=== PATIENT | female | born 1955 | race Caucasian/White ===

== ENCOUNTER 2021-08-14 12:27 | Inpatient (IN) | payer OTHER ==
[~2021-08-14] VITALS: Ht 160 cm; Wt 93.6 kg
[2021-08-14] MEDS ORDERED: AZITHROMYCIN 500MG/ 250ML 250 ML IV ONE (12:45)
[2021-08-14] MEDS ORDERED: methylPREDNISolone SOD SUCC 125 MG/2 ML VL IV ONE (12:45)
[2021-08-14] MEDS ORDERED: ASCORBIC ACID 500 MG TAB PO ONE (12:45)
[2021-08-14] MEDS ORDERED: CHOLECALCIFEROL (VITD3) 2,000 UNIT CAP/TAB PO ONE (12:45)
[2021-08-14] MEDS ORDERED: ZINC SULFATE 220mg CAP or TAB PO ONE (12:45)
[2021-08-14 14:07] LABS: Basophils # (auto) 0 10 ^3/uL (0-0.2); Basophils % (auto) 0.7 % (0.0-2.0); Eosinophils # (auto) 0 10 ^3/uL (0-0.8); Hemoglobin 14.5 g/dL (12.2-16.2); Lymphocytes # (auto) 0.4 10 ^3/uL (0.4-5.4); Lymphocytes % (auto) 10.1 % (10.0-50.0); Mean Corpuscular Hemoglobin 28.7 pg (28.0-32.0); Mean Corpuscular Hgb Conc. 33.7 g/dL (32.0-36.0); Mean Corpuscular Volume 85.3 fL (80.0-100.0); Monocytes # (auto) 0.3 10 ^3/uL (0-1.3); Monocytes % (auto) 9.5 % (0.0-12.0); Neutrophils # (auto) 2.8 10 ^3/uL (1.6-8.6); Neutrophils % (auto) 79.7 % (37.0-80.0); Nucleated Red Blood Cells % 0.1 %; Red Blood Cells 5.04 10^6/uL (4.0-5.20); Red Cell Distribution Width 13.7 % (11.8-14.3); White Blood Cell 3.5 10^3/uL (4.4-10.8)
[2021-08-14 14:27] LABS: Albumin 2.8 g/dL (3.4-5.0); Calcium 8.1 mg/dL (8.5-10.1); Potassium 3.9 mmol/L (3.5-5.1)
[2021-08-14 14:36] LABS: BUN/Creatinine Ratio 30.2; Bilirubin, Total 0.3 mg/dL (0.2-1.0); CRP High Sensitivity 8.54 mg/dL (< 0.3); Total Protein 7.3 g/dL (6.4-8.2)
[2021-08-14] MEDS ORDERED: ACETAMINOPHEN 325 MG TAB PO ONE (15:15)
[2021-08-14] MEDS ORDERED: MORPHINE SULFATE 4 MG/ML SYR/VIAL IV ONE (17:45)
[2021-08-14] MEDS ORDERED: ONDANSETRON HCL 4 MG/2 ML VIAL IV ONE (17:45)
[2021-08-14] MEDS ORDERED: DOCUSATE SOD 100 MG CAP PO PRN (22:45)
[2021-08-14] MEDS ORDERED: ONDANSETRON HCL 4 MG/2 ML VIAL IV PRN (22:45)
[2021-08-14] MEDS ORDERED: IOHEXOL 350 MG/ML 100ML IJ ONE (23:08)
[2021-08-14] MEDS: SODIUM CHLORIDE 0.9% 1,000 ML IV SCH (23:12)
[2021-08-14] MEDS ORDERED: NITROGLYCERIN 0.4 MG SL TAB SL PRN (23:45)
[2021-08-14] MEDS ORDERED: MORPHINE SULFATE INJECTION 2 MG/ML SYRG IV PRN (23:45)
[2021-08-15] VITALS (7 sets, daily range): BP systolic 105–124; BP diastolic 60–79
[2021-08-15] MEDS: HYDROcodone-ACET 5/325MG TAB PO PRN (02:43)
[2021-08-15] MEDS: SODIUM CHLORIDE 0.9% 1,000 ML IV SCH ×2 (07:05→15:51)
[2021-08-15 09:42] LABS: Basophils # (auto) 0 10 ^3/uL (0-0.2); Basophils % (auto) 0.1 % (0.0-2.0); Eosinophils # (auto) 0 10 ^3/uL (0-0.8); Hematocrit 43.1 % (36.0-46.0); Hemoglobin 14.3 g/dL (12.2-16.2); Lymphocytes # (auto) 0.4 10 ^3/uL (0.4-5.4); Lymphocytes % (auto) 8.7 % (10.0-50.0); Mean Corpuscular Hemoglobin 29.1 pg (28.0-32.0); Mean Corpuscular Hgb Conc. 33.3 g/dL (32.0-36.0); Mean Corpuscular Volume 87.4 fL (80.0-100.0); Monocytes # (auto) 0.3 10 ^3/uL (0-1.3); Monocytes % (auto) 6.3 % (0.0-12.0); Neutrophils % (auto) 84.9 % (37.0-80.0); Red Blood Cells 4.93 10^6/uL (4.0-5.20); Red Cell Distribution Width 13.6 % (11.8-14.3); White Blood Cell 4.7 10^3/uL (4.4-10.8)
[2021-08-15] MEDS: ASPirin 81 mg TAB PO SCH (09:47)
[2021-08-15] MEDS: DOXYCYCLINE 100MG/250ML 250 ML IV SCH ×2 (09:47→21:48)
[2021-08-15] MEDS: DexAMETHasone SOD PHOS 10MG/1ML VIAL INJ IV SCH (09:47)
[2021-08-15] MEDS: CHOLECALCIFEROL (VITD3) 2,000 UNIT CAP/TAB PO SCH (09:48)
[2021-08-15] MEDS: ENOXAPARIN SOD 40 MG/0.4 ML SYRINGE SC SCH ×2 (09:48→21:49)
[2021-08-15] MEDS: ASCORBIC ACID 1,000 MG TAB PO SCH (09:48)
[2021-08-15] MEDS: ZINC SULFATE 220mg CAP or TAB PO SCH (09:49)
[2021-08-15] MEDS: MULTIPLE VITAMIN TAB PO SCH (09:49)
[2021-08-15 09:59] LABS: Albumin 2.6 g/dL (3.4-5.0); Calcium 8.2 mg/dL (8.5-10.1); Potassium 3.9 mmol/L (3.5-5.1)
[2021-08-15] MEDS ORDERED: FAMOTIDINE (10MG/ML) 2ML VL IV SCH (10:00)
[2021-08-15 10:06] LABS: BUN/Creatinine Ratio 30.1; Bilirubin, Total 0.3 mg/dL (0.2-1.0)
[2021-08-15] MEDS ORDERED: REMDESIVIR PER PHARMACY 0 ML IV SCH (13:00)
[2021-08-15] MEDS ORDERED: REMDESIVIR 200 MG in NS 210ml LOADING DOSE ADULT IV ONE (15:30)
[2021-08-15] MEDS: BUDESONIDE (INHALATION) 180 MCG IH IN SCH (18:52)
[2021-08-16] MEDS: SODIUM CHLORIDE 0.9% 1,000 ML IV SCH ×2 (02:05→04:55)
[2021-08-16 05:31] VITALS: BP 128/75
[2021-08-16 05:31] LABS: Basophils # (auto) 0 10 ^3/uL (0-0.2); Basophils % (auto) 0.1 % (0.0-2.0); Eosinophils # (auto) 0 10 ^3/uL (0-0.8); Hemoglobin 13.4 g/dL (12.2-16.2); Lymphocytes # (auto) 0.6 10 ^3/uL (0.4-5.4); Lymphocytes % (auto) 5.5 % (10.0-50.0); Mean Corpuscular Hemoglobin 28.1 pg (28.0-32.0); Mean Corpuscular Hgb Conc. 32.6 g/dL (32.0-36.0); Monocytes # (auto) 0.5 10 ^3/uL (0-1.3); Monocytes % (auto) 4.6 % (0.0-12.0); Neutrophils # (auto) 9.4 10 ^3/uL (1.6-8.6); Neutrophils % (auto) 89.8 % (37.0-80.0); Nucleated Red Blood Cells % 0.1 %; Red Blood Cells 4.77 10^6/uL (4.0-5.20); Red Cell Distribution Width 13.7 % (11.8-14.3); White Blood Cell 10.5 10^3/uL (4.4-10.8)
[2021-08-16 05:47] LABS: Albumin 2.5 g/dL (3.4-5.0); Calcium 7.8 mg/dL (8.5-10.1); Potassium 4.2 mmol/L (3.5-5.1)
[2021-08-16 05:51] LABS: BUN/Creatinine Ratio 38.2; Bilirubin, Total 0.3 mg/dL (0.2-1.0); Total Protein 6.1 g/dL (6.4-8.2)
[2021-08-16 09:00] VITALS: BP 108/53
[2021-08-16] MEDS: BUDESONIDE (INHALATION) 180 MCG IH IN SCH ×2 (09:29→22:07)
[2021-08-16] MEDS: ALBUTEROL SULF HFA 90MCG INH 200DOSE IN PRN ×2 (09:30→22:07)
[2021-08-16] MEDS: ZINC SULFATE 220mg CAP or TAB PO SCH (10:00)
[2021-08-16] MEDS: ASPirin 81 mg TAB PO SCH (10:23)
[2021-08-16] MEDS: DOXYCYCLINE 100MG/250ML 250 ML IV SCH ×2 (10:23→21:18)
[2021-08-16] MEDS: DexAMETHasone SOD PHOS 10MG/1ML VIAL INJ IV SCH (10:23)
[2021-08-16] MEDS: MULTIPLE VITAMIN TAB PO SCH (10:23)
[2021-08-16] MEDS: CHOLECALCIFEROL (VITD3) 2,000 UNIT CAP/TAB PO SCH (10:24)
[2021-08-16] MEDS: ASCORBIC ACID 1,000 MG TAB PO SCH (10:24)
[2021-08-16] MEDS: ENOXAPARIN SOD 40 MG/0.4 ML SYRINGE SC SCH ×2 (10:24→21:18)
[2021-08-16] MEDS: HYDROcodone-ACET 5/325MG TAB PO PRN ×3 (10:35→21:48)
[2021-08-16 13:00] VITALS: BP 96/68
[2021-08-16 16:00] VITALS: BP 101/70
[2021-08-16] MEDS: REMDESIVIR 100mg 100 MG in SODIUM CHL 0.9% 230 ML IV SCH (16:07)
[2021-08-16 16:15] VITALS: BP 97/67
[2021-08-16 22:00] VITALS: BP 121/72
[2021-08-17] VITALS (8 sets, daily range): BP systolic 120–138; BP diastolic 62–79
[2021-08-17] MEDS: SODIUM CHLORIDE 0.9% 1,000 ML IV SCH ×2 (04:45→18:05)
[2021-08-17 07:46] LABS: Potassium 4.4 mmol/L (3.5-5.1)
[2021-08-17 07:54] LABS: Albumin 2.2 g/dL (3.4-5.0); BUN/Creatinine Ratio 47.9; Bilirubin, Total 0.4 mg/dL (0.2-1.0); Calcium 8.2 mg/dL (8.5-10.1); Total Protein 5.5 g/dL (6.4-8.2)
[2021-08-17] MEDS: BUDESONIDE (INHALATION) 180 MCG IH IN SCH ×2 (09:18→22:18)
[2021-08-17] MEDS: ALBUTEROL SULF HFA 90MCG INH 200DOSE IN PRN (09:18)
[2021-08-17] MEDS: ASPirin 81 mg TAB PO SCH (10:00)
[2021-08-17] MEDS: CHOLECALCIFEROL (VITD3) 2,000 UNIT CAP/TAB PO SCH (10:00)
[2021-08-17] MEDS: MULTIPLE VITAMIN TAB PO SCH (10:00)
[2021-08-17] MEDS: ZINC SULFATE 220mg CAP or TAB PO SCH (10:00)
[2021-08-17] MEDS: DexAMETHasone SOD PHOS 10MG/1ML VIAL INJ IV SCH (10:00)
[2021-08-17] MEDS: ASCORBIC ACID 1,000 MG TAB PO SCH (10:00)
[2021-08-17] MEDS: ENOXAPARIN SOD 40 MG/0.4 ML SYRINGE SC SCH ×2 (10:00→22:00)
[2021-08-17] MEDS: DOXYCYCLINE 100MG/250ML 250 ML IV SCH ×2 (10:00→22:00)
[2021-08-17] MEDS: HYDROcodone-ACET 5/325MG TAB PO PRN ×2 (10:47→22:00)
[2021-08-17] MEDS: REMDESIVIR 100mg 100 MG in SODIUM CHL 0.9% 230 ML IV SCH ×2 (14:39→16:41)
[2021-08-18] VITALS (8 sets, daily range): BP systolic 119–144; BP diastolic 58–84
[2021-08-18] MEDS: SODIUM CHLORIDE 0.9% 1,000 ML IV SCH ×2 (06:25→20:45)
[2021-08-18 06:43] LABS: Basophils # (auto) 0 10 ^3/uL (0-0.2); Basophils % (auto) 0.1 % (0.0-2.0); Eosinophils # (auto) 0 10 ^3/uL (0-0.8); Hematocrit 40.6 % (36.0-46.0); Hemoglobin 13.5 g/dL (12.2-16.2); Lymphocytes # (auto) 0.5 10 ^3/uL (0.4-5.4); Lymphocytes % (auto) 4.5 % (10.0-50.0); Mean Corpuscular Hemoglobin 28.6 pg (28.0-32.0); Mean Corpuscular Hgb Conc. 33.2 g/dL (32.0-36.0); Mean Corpuscular Volume 86.2 fL (80.0-100.0); Monocytes # (auto) 0.7 10 ^3/uL (0-1.3); Monocytes % (auto) 5.4 % (0.0-12.0); Neutrophils # (auto) 10.8 10 ^3/uL (1.6-8.6); Red Blood Cells 4.71 10^6/uL (4.0-5.20); Red Cell Distribution Width 13.8 % (11.8-14.3); White Blood Cell 12.1 10^3/uL (4.4-10.8)
[2021-08-18 07:06] LABS: Potassium 4.5 mmol/L (3.5-5.1)
[2021-08-18 07:11] LABS: Bilirubin, Total 0.4 mg/dL (0.2-1.0); Total Protein 5.3 g/dL (6.4-8.2)
[2021-08-18] MEDS: BUDESONIDE (INHALATION) 180 MCG IH IN SCH ×2 (09:22→22:00)
[2021-08-18] MEDS: ALBUTEROL SULF HFA 90MCG INH 200DOSE IN PRN (09:22)
[2021-08-18] MEDS: HYDROcodone-ACET 5/325MG TAB PO PRN ×2 (10:00→15:55)
[2021-08-18] MEDS: CHOLECALCIFEROL (VITD3) 2,000 UNIT CAP/TAB PO SCH (10:00)
[2021-08-18] MEDS: MULTIPLE VITAMIN TAB PO SCH (10:00)
[2021-08-18] MEDS: DexAMETHasone SOD PHOS 10MG/1ML VIAL INJ IV SCH (10:00)
[2021-08-18] MEDS: ASCORBIC ACID 1,000 MG TAB PO SCH (10:00)
[2021-08-18] MEDS: ENOXAPARIN SOD 40 MG/0.4 ML SYRINGE SC SCH ×2 (10:00→22:19)
[2021-08-18] MEDS: DOXYCYCLINE 100MG/250ML 250 ML IV SCH ×2 (10:00→22:19)
[2021-08-18] MEDS: ASPirin 81 mg TAB PO SCH (10:00)
[2021-08-18] MEDS: ZINC SULFATE 220mg CAP or TAB PO SCH (10:00)
[2021-08-18] MEDS: REMDESIVIR 100mg 100 MG in SODIUM CHL 0.9% 230 ML IV SCH (15:45)
[2021-08-18] MEDS: Ensure HIGH Protein Vanilla 8oz Bottle PO SCH (18:00)
[2021-08-18] MEDS ORDERED: Ensure HIGH Protein Vanilla 8oz Bottle PO SCH (18:00)
[2021-08-18] MEDS: LORazepam 2MG/ML-1ML VIAL IV PRN (20:46)
[2021-08-19] VITALS (47 sets, daily range): BP systolic 67–211; BP diastolic 45–143
[2021-08-19] MEDS: LORazepam 2MG/ML-1ML VIAL IV PRN ×2 (01:28→06:44)
[2021-08-19 06:35] LABS: Potassium 4.5 mmol/L (3.5-5.1)
[2021-08-19 06:52] LABS: Bilirubin, Total 0.6 mg/dL (0.2-1.0); Total Protein 5.3 g/dL (6.4-8.2)
[2021-08-19] MEDS: BUDESONIDE (INHALATION) 180 MCG IH IN SCH (07:41)
[2021-08-19] MEDS: ALBUTEROL SULF HFA 90MCG INH 200DOSE IN PRN (07:41)
[2021-08-19] MEDS: Ensure HIGH Protein Vanilla 8oz Bottle PO SCH ×3 (08:00→18:00)
[2021-08-19] MEDS: DexAMETHasone SOD PHOS 10MG/1ML VIAL INJ IV SCH (09:02)
[2021-08-19] MEDS: ASPirin 81 mg TAB PO SCH (09:03)
[2021-08-19] MEDS: CHOLECALCIFEROL (VITD3) 2,000 UNIT CAP/TAB PO SCH (09:03)
[2021-08-19] MEDS: ASCORBIC ACID 1,000 MG TAB PO SCH (09:03)
[2021-08-19] MEDS: ZINC SULFATE 220mg CAP or TAB PO SCH (09:03)
[2021-08-19] MEDS: MULTIPLE VITAMIN TAB PO SCH (09:03)
[2021-08-19] MEDS: DOXYCYCLINE 100MG/250ML 250 ML IV SCH ×2 (09:03→21:59)
[2021-08-19] MEDS: ENOXAPARIN SOD 40 MG/0.4 ML SYRINGE SC SCH ×2 (09:04→21:53)
[2021-08-19] MEDS ORDERED: SUCCINYLCHOLINE CHLORIDE 20 MG/ML 10ML VIAL IV ONE (10:09)
[2021-08-19] MEDS ORDERED: ROCURONIUM 10MG/ML 10ML VIAL IV ONE (10:09)
[2021-08-19] MEDS ORDERED: ETOMIDATE (2MG/ML) 20ML VIAL IV ONE (10:09)
[2021-08-19] MEDS ORDERED: MIDAZOLAM HCL 2MG/2ML 2ml VIAL (1mg/ml) ONE (10:10)
[2021-08-19] MEDS ORDERED: fentaNYL Drip 2500mCg/250mlNS 250 ML IV ONE (10:30)
[2021-08-19] MEDS ORDERED: MIDAZOLAM DRIP 50 mg/50mL 50 ML IV ONE ×2 (10:30→11:57)
[2021-08-19] MEDS ORDERED: PROPOFOL 100 ML IV ONE (11:05)
[2021-08-19] MEDS: MIDAZOLAM DRIP 50 mg/50mL 50 ML IV SCH (13:30)
[2021-08-19] MEDS: fentaNYL Drip 2500mCg/250mlNS 250 ML IV SCH (13:30)
[2021-08-19] MEDS: ACETAMINOPHEN 500 MG TAB PO PRN (13:48)
[2021-08-19] MEDS: REMDESIVIR 100mg 100 MG in SODIUM CHL 0.9% 230 ML IV SCH (15:00)
[2021-08-19] MEDS: PROPOFOL 100 ML IV SCH (15:25)
[2021-08-19 15:30] LABS: Hematocrit 38.1 % (36.0-46.0); Hemoglobin 12.5 g/dL (12.2-16.2); Mean Corpuscular Hemoglobin 28.5 pg (28.0-32.0); Mean Corpuscular Hgb Conc. 32.8 g/dL (32.0-36.0); Red Blood Cells 4.38 10^6/uL (4.0-5.20); Red Cell Distribution Width 13.7 % (11.8-14.3)
[2021-08-19] MEDS: NOREPINEPHRINE 8 MG/250ML KIT 250 ML IV SCH (15:30)
[2021-08-19 15:47] LABS: Band Neutrophils % (manual) 0; Basophils % (manual) 0 (0.0-2.0); Blast Cells 0; Eosinophils % (manual) 0 (0-7); Metamyelocytes % 0; Myelocytes % 0; Promyelocytes % 0; Reactive Lymphocytes 0
[2021-08-19 16:24] LABS: Lymphocytes % (manual) 3 (10.0-50.0); Monocytes % (manual) 2 (0-12)
[2021-08-19] MEDS: SODIUM CHLORIDE 0.9% 1,000 ML IV SCH (23:16)
[2021-08-20] VITALS (65 sets, daily range): BP systolic 93–142; BP diastolic 61–88
[2021-08-20] MEDS: fentaNYL Drip 2500mCg/250mlNS 250 ML IV SCH (00:35)
[2021-08-20] MEDS: MIDAZOLAM DRIP 50 mg/50mL 50 ML IV SCH ×2 (00:36→06:42)
[2021-08-20] MEDS: ACETAMINOPHEN 500 MG TAB PO PRN (01:22)
[2021-08-20 05:08] LABS: BUN/Creatinine Ratio 38.9; Calcium 8.1 mg/dL (8.5-10.1); Magnesium 2.5 mg/dL (1.6-2.6)
[2021-08-20 05:13] LABS: Basophils # (auto) 0 10 ^3/uL (0-0.2); Basophils % (auto) 0.3 % (0.0-2.0); Eosinophils # (auto) 0 10 ^3/uL (0-0.8); Eosinophils % (auto) 0.1 % (0.0-7.0); Hematocrit 38.4 % (36.0-46.0); Hemoglobin 12.6 g/dL (12.2-16.2); Lymphocytes # (auto) 0.3 10 ^3/uL (0.4-5.4); Lymphocytes % (auto) 2.2 % (10.0-50.0); Mean Corpuscular Hemoglobin 28.3 pg (28.0-32.0); Mean Corpuscular Hgb Conc. 32.8 g/dL (32.0-36.0); Mean Corpuscular Volume 86.4 fL (80.0-100.0); Monocytes # (auto) 0.4 10 ^3/uL (0-1.3); Monocytes % (auto) 3.1 % (0.0-12.0); Neutrophils # (auto) 12.9 10 ^3/uL (1.6-8.6); Neutrophils % (auto) 94.3 % (37.0-80.0); Nucleated Red Blood Cells % 0.1 %; Red Blood Cells 4.44 10^6/uL (4.0-5.20); Red Cell Distribution Width 14.2 % (11.8-14.3); White Blood Cell 13.7 10^3/uL (4.4-10.8)
[2021-08-20] MEDS: Ensure HIGH Protein Vanilla 8oz Bottle PO SCH ×3 (07:53→23:27)
[2021-08-20] MEDS: MULTIPLE VITAMIN TAB PO SCH (10:27)
[2021-08-20] MEDS: ASPirin 81 mg TAB PO SCH (10:27)
[2021-08-20] MEDS: DexAMETHasone SOD PHOS 10MG/1ML VIAL INJ IV SCH (10:27)
[2021-08-20] MEDS: ZINC SULFATE 220mg CAP or TAB PO SCH (10:27)
[2021-08-20] MEDS: ENOXAPARIN SOD 40 MG/0.4 ML SYRINGE SC SCH ×2 (10:28→22:00)
[2021-08-20] MEDS: CHOLECALCIFEROL (VITD3) 2,000 UNIT CAP/TAB PO SCH (10:28)
[2021-08-20] MEDS: ASCORBIC ACID 1,000 MG TAB PO SCH (10:28)
[2021-08-20] MEDS: SODIUM CHLORIDE 0.9% 1,000 ML IV SCH (23:25)
[2021-08-20] MEDS: PROPOFOL 100 ML IV SCH (23:26)
[2021-08-21] VITALS (94 sets, daily range): BP systolic 92–148; BP diastolic 52–97
[2021-08-21] MEDS: SODIUM CHLORIDE 0.9% 1,000 ML IV SCH ×2 (02:05→13:15)
[2021-08-21 04:54] LABS: Basophils # (auto) 0 10 ^3/uL (0-0.2); Basophils % (auto) 0.1 % (0.0-2.0); Eosinophils # (auto) 0 10 ^3/uL (0-0.8); Hemoglobin 11.7 g/dL (12.2-16.2); Lymphocytes # (auto) 0.2 10 ^3/uL (0.4-5.4); Lymphocytes % (auto) 1.4 % (10.0-50.0); Mean Corpuscular Hemoglobin 28.8 pg (28.0-32.0); Mean Corpuscular Hgb Conc. 33.4 g/dL (32.0-36.0); Mean Corpuscular Volume 86.2 fL (80.0-100.0); Monocytes # (auto) 0.8 10 ^3/uL (0-1.3); Neutrophils # (auto) 12.1 10 ^3/uL (1.6-8.6); Neutrophils % (auto) 92.5 % (37.0-80.0); Nucleated Red Blood Cells % 0.1 %; Red Blood Cells 4.06 10^6/uL (4.0-5.20); Red Cell Distribution Width 13.9 % (11.8-14.3); White Blood Cell 13.1 10^3/uL (4.4-10.8)
[2021-08-21 05:03] LABS: Calcium 8.3 mg/dL (8.5-10.1); Magnesium 2.8 mg/dL (1.6-2.6); Potassium 4.2 mmol/L (3.5-5.1)
[2021-08-21 05:04] LABS: BUN/Creatinine Ratio 40.5
[2021-08-21] MEDS: NOREPINEPHRINE 8 MG/250ML KIT 250 ML IV SCH ×2 (06:04→10:49)
[2021-08-21] MEDS: Ensure HIGH Protein Vanilla 8oz Bottle PO SCH ×3 (08:00→13:15)
[2021-08-21] MEDS: fentaNYL Drip 2500mCg/250mlNS 250 ML IV SCH (09:12)
[2021-08-21] MEDS: PROPOFOL 100 ML IV SCH (09:13)
[2021-08-21] MEDS: ENOXAPARIN SOD 40 MG/0.4 ML SYRINGE SC SCH ×2 (10:00→22:00)
[2021-08-21] MEDS: DexAMETHasone SOD PHOS 10MG/1ML VIAL INJ IV SCH (10:42)
[2021-08-21] MEDS: ASCORBIC ACID 1,000 MG TAB PO SCH (10:43)
[2021-08-21] MEDS: ASPirin 81 mg TAB PO SCH (10:43)
[2021-08-21] MEDS: CHOLECALCIFEROL (VITD3) 2,000 UNIT CAP/TAB PO SCH (10:43)
[2021-08-21] MEDS: ZINC SULFATE 220mg CAP or TAB PO SCH (10:43)
[2021-08-21] MEDS: MULTIPLE VITAMIN TAB PO SCH (10:43)
[2021-08-21] MEDS: MIDAZOLAM DRIP 50 mg/50mL 50 ML IV SCH (11:20)
[2021-08-22] VITALS (94 sets, daily range): BP systolic 83–133; BP diastolic 42–90
[2021-08-22] MEDS: SODIUM CHLORIDE 0.9% 1,000 ML IV SCH ×2 (05:17→12:03)
[2021-08-22 07:10] LABS: Basophils # (auto) 0 10 ^3/uL (0-0.2); Eosinophils # (auto) 0 10 ^3/uL (0-0.8); Hematocrit 33.4 % (36.0-46.0); Lymphocytes # (auto) 0.4 10 ^3/uL (0.4-5.4); Lymphocytes % (auto) 3.2 % (10.0-50.0); Mean Corpuscular Hemoglobin 28.6 pg (28.0-32.0); Mean Corpuscular Volume 86.8 fL (80.0-100.0); Monocytes # (auto) 0.7 10 ^3/uL (0-1.3); Monocytes % (auto) 5.7 % (0.0-12.0); Neutrophils # (auto) 11.2 10 ^3/uL (1.6-8.6); Neutrophils % (auto) 91.1 % (37.0-80.0); Red Blood Cells 3.85 10^6/uL (4.0-5.20); Red Cell Distribution Width 14.3 % (11.8-14.3); White Blood Cell 12.3 10^3/uL (4.4-10.8)
[2021-08-22 07:21] LABS: Albumin 1.7 g/dL (3.4-5.0); BUN/Creatinine Ratio 63.2; Calcium 8.5 mg/dL (8.5-10.1); Potassium 4.9 mmol/L (3.5-5.1)
[2021-08-22 07:23] LABS: Bilirubin, Total 0.3 mg/dL (0.2-1.0); Total Protein 5.3 g/dL (6.4-8.2)
[2021-08-22] MEDS: Ensure HIGH Protein Vanilla 8oz Bottle PO SCH ×3 (08:00→14:31)
[2021-08-22] MEDS: ENOXAPARIN SOD 40 MG/0.4 ML SYRINGE SC SCH ×2 (08:23→22:00)
[2021-08-22] MEDS: ASPirin 81 mg TAB PO SCH (08:23)
[2021-08-22] MEDS: DexAMETHasone SOD PHOS 10MG/1ML VIAL INJ IV SCH (09:53)
[2021-08-22] MEDS: MULTIPLE VITAMIN TAB PO SCH (09:53)
[2021-08-22] MEDS: ZINC SULFATE 220mg CAP or TAB PO SCH (09:53)
[2021-08-22] MEDS: CHOLECALCIFEROL (VITD3) 2,000 UNIT CAP/TAB PO SCH (09:54)
[2021-08-22] MEDS: PROPOFOL 100 ML IV SCH (09:54)
[2021-08-22] MEDS: ASCORBIC ACID 1,000 MG TAB PO SCH (09:54)
[2021-08-22] MEDS ORDERED: PANTOPRAZOLE 40 MG/10 ML VIAL INJ IV SCH (10:00)
[2021-08-22] MEDS: MIDAZOLAM DRIP 50 mg/50mL 50 ML IV SCH (10:15)
[2021-08-22] MEDS: NOREPINEPHRINE 8 MG/250ML KIT 250 ML IV SCH (10:16)
[2021-08-22] MEDS: Jevity 1.2 Cal/Fiber 1 Liter GT SCH (11:23)
[2021-08-22] MEDS: fentaNYL Drip 2500mCg/250mlNS 250 ML IV SCH (12:03)
[2021-08-22] MEDS: METOCLOPRAMIDE HCL 5MG/ml INJ 2ml VIAL IV SCH ×2 (14:31→22:00)
[2021-08-22] MEDS: FAMOTIDINE (10MG/ML) 2ML VL IV SCH (22:00)
[2021-08-23] VITALS (104 sets, daily range): BP systolic 101–148; BP diastolic 36–88
[2021-08-23] MEDS: MIDAZOLAM DRIP 50 mg/50mL 50 ML IV SCH ×4 (02:06→19:15)
[2021-08-23] MEDS: fentaNYL Drip 2500mCg/250mlNS 250 ML IV SCH ×2 (03:26→21:43)
[2021-08-23] MEDS: METOCLOPRAMIDE HCL 5MG/ml INJ 2ml VIAL IV SCH ×3 (05:37→21:52)
[2021-08-23 06:47] LABS: Basophils # (auto) 0 10 ^3/uL (0-0.2); Basophils % (auto) 0.2 % (0.0-2.0); Eosinophils # (auto) 0 10 ^3/uL (0-0.8); Hematocrit 32.8 % (36.0-46.0); Hemoglobin 11.1 g/dL (12.2-16.2); Lymphocytes # (auto) 0.4 10 ^3/uL (0.4-5.4); Lymphocytes % (auto) 3.7 % (10.0-50.0); Mean Corpuscular Hemoglobin 29.5 pg (28.0-32.0); Mean Corpuscular Hgb Conc. 33.9 g/dL (32.0-36.0); Mean Corpuscular Volume 87.1 fL (80.0-100.0); Monocytes # (auto) 0.8 10 ^3/uL (0-1.3); Monocytes % (auto) 7.7 % (0.0-12.0); Neutrophils # (auto) 8.6 10 ^3/uL (1.6-8.6); Neutrophils % (auto) 88.4 % (37.0-80.0); Nucleated Red Blood Cells % 0.1 %; Red Blood Cells 3.77 10^6/uL (4.0-5.20); Red Cell Distribution Width 14.3 % (11.8-14.3); White Blood Cell 9.7 10^3/uL (4.4-10.8)
[2021-08-23 07:07] LABS: Albumin 1.7 g/dL (3.4-5.0); BUN/Creatinine Ratio 71.4; Calcium 8.6 mg/dL (8.5-10.1)
[2021-08-23 07:10] LABS: Bilirubin, Total 0.3 mg/dL (0.2-1.0); Total Protein 5.7 g/dL (6.4-8.2)
[2021-08-23] MEDS: SODIUM CHLORIDE 0.9% 1,000 ML IV SCH ×2 (07:25→19:14)
[2021-08-23] MEDS: Ensure HIGH Protein Vanilla 8oz Bottle PO SCH ×3 (08:00→17:32)
[2021-08-23] MEDS: CHOLECALCIFEROL (VITD3) 2,000 UNIT CAP/TAB PO SCH (09:16)
[2021-08-23] MEDS: FAMOTIDINE (10MG/ML) 2ML VL IV SCH ×2 (09:16→21:52)
[2021-08-23] MEDS: ASPirin 81 mg TAB PO SCH (09:16)
[2021-08-23] MEDS: ZINC SULFATE 220mg CAP or TAB PO SCH (09:16)
[2021-08-23] MEDS: ASCORBIC ACID 1,000 MG TAB PO SCH (09:16)
[2021-08-23] MEDS: DexAMETHasone SOD PHOS 10MG/1ML VIAL INJ IV SCH (09:17)
[2021-08-23] MEDS: MULTIPLE VITAMIN TAB PO SCH (09:17)
[2021-08-23] MEDS: ENOXAPARIN SOD 40 MG/0.4 ML SYRINGE SC SCH ×2 (10:00→21:52)
[2021-08-23] MEDS ORDERED: FUROSEMIDE 40 MG/4 ML VIAL IV ONE (10:45)
[2021-08-23] MEDS: PROPOFOL 100 ML IV SCH (13:30)
[2021-08-23] MEDS: NOREPINEPHRINE 8 MG/250ML KIT 250 ML IV SCH (15:06)
[2021-08-24] VITALS (93 sets, daily range): BP systolic 110–148; BP diastolic 50–90
[2021-08-24 06:02] LABS: Hematocrit 33.4 % (36.0-46.0); Hemoglobin 10.9 g/dL (12.2-16.2); Mean Corpuscular Hemoglobin 28.6 pg (28.0-32.0); Mean Corpuscular Hgb Conc. 32.7 g/dL (32.0-36.0); Mean Corpuscular Volume 87.4 fL (80.0-100.0); Red Blood Cells 3.83 10^6/uL (4.0-5.20); Red Cell Distribution Width 13.9 % (11.8-14.3)
[2021-08-24] MEDS: METOCLOPRAMIDE HCL 5MG/ml INJ 2ml VIAL IV SCH ×3 (06:05→23:37)
[2021-08-24 06:14] LABS: Basophils % (manual) 0 (0.0-2.0); Blast Cells 0; Eosinophils % (manual) 0 (0-7); Metamyelocytes % 0; Myelocytes % 0; Promyelocytes % 0; Reactive Lymphocytes 0
[2021-08-24 06:18] LABS: Albumin 1.8 g/dL (3.4-5.0); BUN/Creatinine Ratio 76.4; Calcium 8.2 mg/dL (8.5-10.1)
[2021-08-24 06:27] LABS: Bilirubin, Total 0.3 mg/dL (0.2-1.0); Total Protein 5.5 g/dL (6.4-8.2)
[2021-08-24] MEDS: Ensure HIGH Protein Vanilla 8oz Bottle PO SCH ×3 (08:00→16:30)
[2021-08-24] MEDS: FUROSEMIDE 40 MG/4 ML VIAL IV SCH (08:10)
[2021-08-24] MEDS: FAMOTIDINE (10MG/ML) 2ML VL IV SCH ×2 (08:10→23:36)
[2021-08-24] MEDS: DexAMETHasone SOD PHOS 10MG/1ML VIAL INJ IV SCH (08:10)
[2021-08-24] MEDS: ASPirin 81 mg TAB PO SCH (08:11)
[2021-08-24] MEDS: ZINC SULFATE 220mg CAP or TAB PO SCH (08:11)
[2021-08-24] MEDS: CHOLECALCIFEROL (VITD3) 2,000 UNIT CAP/TAB PO SCH (08:11)
[2021-08-24] MEDS: ASCORBIC ACID 1,000 MG TAB PO SCH (08:11)
[2021-08-24] MEDS: MULTIPLE VITAMIN TAB PO SCH (08:12)
[2021-08-24] MEDS: ENOXAPARIN SOD 40 MG/0.4 ML SYRINGE SC SCH ×2 (08:12→23:37)
[2021-08-24] MEDS: PROPOFOL 100 ML IV SCH (08:42)
[2021-08-24] MEDS: SODIUM CHLORIDE 0.9% 1,000 ML IV SCH ×2 (08:42→23:37)
[2021-08-24] MEDS: MIDAZOLAM DRIP 50 mg/50mL 50 ML IV SCH (10:00)
[2021-08-24 10:10] LABS: Band Neutrophils % (manual) 4; Lymphocytes % (manual) 5 (10.0-50.0); Monocytes % (manual) 4 (0-12)
[2021-08-24] MEDS: NOREPINEPHRINE 8 MG/250ML KIT 250 ML IV SCH (13:31)
[2021-08-24] MEDS: fentaNYL Drip 2500mCg/250mlNS 250 ML IV SCH (21:10)
[2021-08-25] VITALS (47 sets, daily range): BP systolic 90–148; BP diastolic 53–91
[2021-08-25 04:17] LABS: Basophils # (auto) 0 10 ^3/uL (0-0.2); Basophils % (auto) 0.1 % (0.0-2.0); Eosinophils # (auto) 0 10 ^3/uL (0-0.8); Eosinophils % (auto) 0.2 % (0.0-7.0); Hemoglobin 11.5 g/dL (12.2-16.2); Lymphocytes # (auto) 0.7 10 ^3/uL (0.4-5.4); Lymphocytes % (auto) 4.7 % (10.0-50.0); Mean Corpuscular Hemoglobin 28.8 pg (28.0-32.0); Mean Corpuscular Volume 87.4 fL (80.0-100.0); Monocytes % (auto) 6.4 % (0.0-12.0); Neutrophils # (auto) 13.5 10 ^3/uL (1.6-8.6); Neutrophils % (auto) 88.6 % (37.0-80.0); Nucleated Red Blood Cells % 0.1 %; White Blood Cell 15.3 10^3/uL (4.4-10.8)
[2021-08-25 04:33] LABS: Albumin 1.9 g/dL (3.4-5.0); Potassium 4.6 mmol/L (3.5-5.1)
[2021-08-25 04:38] LABS: BUN/Creatinine Ratio 91.7; Bilirubin, Total 0.5 mg/dL (0.2-1.0); Total Protein 5.7 g/dL (6.4-8.2)
[2021-08-25] MEDS: MIDAZOLAM DRIP 50 mg/50mL 50 ML IV SCH ×2 (04:51→12:45)
[2021-08-25] MEDS: METOCLOPRAMIDE HCL 5MG/ml INJ 2ml VIAL IV SCH ×3 (05:54→21:49)
[2021-08-25] MEDS: Ensure HIGH Protein Vanilla 8oz Bottle PO SCH ×3 (08:00→18:00)
[2021-08-25] MEDS: FAMOTIDINE (10MG/ML) 2ML VL IV SCH ×2 (10:22→21:49)
[2021-08-25] MEDS: CHOLECALCIFEROL (VITD3) 2,000 UNIT CAP/TAB PO SCH (10:22)
[2021-08-25] MEDS: FUROSEMIDE 40 MG/4 ML VIAL IV SCH (10:23)
[2021-08-25] MEDS: DexAMETHasone SOD PHOS 10MG/1ML VIAL INJ IV SCH (10:24)
[2021-08-25] MEDS: ASPirin 81 mg TAB PO SCH (10:24)
[2021-08-25] MEDS: ASCORBIC ACID 1,000 MG TAB PO SCH (10:24)
[2021-08-25] MEDS: MULTIPLE VITAMIN TAB PO SCH (10:24)
[2021-08-25] MEDS: ZINC SULFATE 220mg CAP or TAB PO SCH (10:25)
[2021-08-25] MEDS: ENOXAPARIN SOD 40 MG/0.4 ML SYRINGE SC SCH ×2 (10:25→21:49)
[2021-08-25] MEDS: ACETAMINOPHEN 500 MG TAB PO PRN (10:27)
[2021-08-25] MEDS: SODIUM CHLORIDE 0.9% 1,000 ML IV SCH (12:45)
[2021-08-25] MEDS: PROPOFOL 100 ML IV SCH (13:30)
[2021-08-25] MEDS: fentaNYL Drip 2500mCg/250mlNS 250 ML IV SCH (14:30)
[2021-08-25] MEDS: NOREPINEPHRINE 8 MG/250ML KIT 250 ML IV SCH (15:30)
[2021-08-25] MEDS: ALBUTEROL SULF 2.5 MG/0.5ML(0.5%) NEB SOLN NEB PRN (19:41)
[2021-08-26] VITALS (32 sets, daily range): BP systolic 119–157; BP diastolic 71–93
[2021-08-26] MEDS: SODIUM CHLORIDE 0.9% 1,000 ML IV SCH ×3 (02:22→23:53)
[2021-08-26 04:16] LABS: Basophils # (auto) 0 10 ^3/uL (0-0.2); Basophils % (auto) 0.2 % (0.0-2.0); Eosinophils # (auto) 0 10 ^3/uL (0-0.8); Hematocrit 32.6 % (36.0-46.0); Hemoglobin 10.6 g/dL (12.2-16.2); Lymphocytes # (auto) 0.4 10 ^3/uL (0.4-5.4); Lymphocytes % (auto) 2.5 % (10.0-50.0); Mean Corpuscular Hemoglobin 28.6 pg (28.0-32.0); Mean Corpuscular Hgb Conc. 32.7 g/dL (32.0-36.0); Mean Corpuscular Volume 87.6 fL (80.0-100.0); Monocytes # (auto) 0.7 10 ^3/uL (0-1.3); Neutrophils # (auto) 13.4 10 ^3/uL (1.6-8.6); Neutrophils % (auto) 92.3 % (37.0-80.0); Red Blood Cells 3.72 10^6/uL (4.0-5.20); Red Cell Distribution Width 13.9 % (11.8-14.3); White Blood Cell 14.5 10^3/uL (4.4-10.8)
[2021-08-26 04:31] LABS: Albumin 1.7 g/dL (3.4-5.0); Calcium 7.9 mg/dL (8.5-10.1); Magnesium 3.2 mg/dL (1.6-2.6); Potassium 4.5 mmol/L (3.5-5.1)
[2021-08-26 04:35] LABS: Bilirubin, Total 0.8 mg/dL (0.2-1.0); Total Protein 5.8 g/dL (6.4-8.2)
[2021-08-26] MEDS: MIDAZOLAM DRIP 50 mg/50mL 50 ML IV SCH ×4 (04:35→23:05)
[2021-08-26] MEDS: METOCLOPRAMIDE HCL 5MG/ml INJ 2ml VIAL IV SCH ×3 (06:00→22:57)
[2021-08-26] MEDS: fentaNYL Drip 2500mCg/250mlNS 250 ML IV SCH ×2 (06:46→22:57)
[2021-08-26] MEDS: Ensure HIGH Protein Vanilla 8oz Bottle PO SCH ×3 (08:00→18:00)
[2021-08-26] MEDS: CHOLECALCIFEROL (VITD3) 2,000 UNIT CAP/TAB PO SCH (10:00)
[2021-08-26] MEDS: FUROSEMIDE 40 MG/4 ML VIAL IV SCH (10:21)
[2021-08-26] MEDS: MULTIPLE VITAMIN TAB PO SCH (10:22)
[2021-08-26] MEDS: ASCORBIC ACID 1,000 MG TAB PO SCH (10:22)
[2021-08-26] MEDS: ENOXAPARIN SOD 40 MG/0.4 ML SYRINGE SC SCH (10:22)
[2021-08-26] MEDS: ZINC SULFATE 220mg CAP or TAB PO SCH (10:23)
[2021-08-26] MEDS: FAMOTIDINE (10MG/ML) 2ML VL IV SCH ×2 (10:23→22:57)
[2021-08-26] MEDS: ASPirin 81 mg TAB PO SCH (10:23)
[2021-08-26] MEDS: DexAMETHasone SOD PHOS 10MG/1ML VIAL INJ IV SCH (10:27)
[2021-08-26] MEDS: PROPOFOL 100 ML IV SCH (13:30)
[2021-08-26] MEDS: NOREPINEPHRINE 8 MG/250ML KIT 250 ML IV SCH (15:30)
[2021-08-26] MEDS: ALBUTEROL SULF 2.5 MG/0.5ML(0.5%) NEB SOLN NEB PRN (20:15)
[2021-08-27] VITALS (22 sets, daily range): BP systolic 99–160; BP diastolic 64–97
[2021-08-27] MEDS: MIDAZOLAM DRIP 50 mg/50mL 50 ML IV SCH ×4 (02:26→23:20)
[2021-08-27 03:37] LABS: Basophils # (auto) 0.1 10 ^3/uL (0-0.2); Basophils % (auto) 0.5 % (0.0-2.0); Eosinophils # (auto) 0 10 ^3/uL (0-0.8); Hematocrit 33.1 % (36.0-46.0); Hemoglobin 10.7 g/dL (12.2-16.2); Lymphocytes # (auto) 0.3 10 ^3/uL (0.4-5.4); Lymphocytes % (auto) 2.3 % (10.0-50.0); Mean Corpuscular Hemoglobin 28.4 pg (28.0-32.0); Mean Corpuscular Hgb Conc. 32.2 g/dL (32.0-36.0); Mean Corpuscular Volume 88.3 fL (80.0-100.0); Monocytes # (auto) 0.8 10 ^3/uL (0-1.3); Monocytes % (auto) 5.6 % (0.0-12.0); Neutrophils % (auto) 91.6 % (37.0-80.0); Nucleated Red Blood Cells % 0.1 %; Red Blood Cells 3.75 10^6/uL (4.0-5.20); White Blood Cell 14.2 10^3/uL (4.4-10.8)
[2021-08-27 03:53] LABS: Albumin 1.8 g/dL (3.4-5.0); BUN/Creatinine Ratio 78.9; Calcium 8.1 mg/dL (8.5-10.1); Potassium 4.7 mmol/L (3.5-5.1)
[2021-08-27 04:03] LABS: Bilirubin, Total 0.4 mg/dL (0.2-1.0); Total Protein 5.9 g/dL (6.4-8.2)
[2021-08-27] MEDS: METOCLOPRAMIDE HCL 5MG/ml INJ 2ml VIAL IV SCH ×3 (06:00→21:17)
[2021-08-27] MEDS: Ensure HIGH Protein Vanilla 8oz Bottle PO SCH ×3 (08:00→18:00)
[2021-08-27] MEDS: DexAMETHasone SOD PHOS 10MG/1ML VIAL INJ IV SCH (09:31)
[2021-08-27] MEDS: FUROSEMIDE 40 MG/4 ML VIAL IV SCH (09:32)
[2021-08-27] MEDS: MULTIPLE VITAMIN TAB PO SCH (09:32)
[2021-08-27] MEDS: ZINC SULFATE 220mg CAP or TAB PO SCH (09:32)
[2021-08-27] MEDS: ASCORBIC ACID 1,000 MG TAB PO SCH (09:32)
[2021-08-27] MEDS: ASPirin 81 mg TAB PO SCH (09:32)
[2021-08-27] MEDS: CHOLECALCIFEROL (VITD3) 2,000 UNIT CAP/TAB PO SCH (09:33)
[2021-08-27] MEDS ORDERED: FUROSEMIDE 40 MG/4 ML VIAL IV ONE (11:15)
[2021-08-27] MEDS: fentaNYL Drip 2500mCg/250mlNS 250 ML IV SCH ×2 (11:27→23:37)
[2021-08-27] MEDS: PROPOFOL 100 ML IV SCH (13:30)
[2021-08-27] MEDS: FAMOTIDINE (10MG/ML) 2ML VL IV SCH ×2 (14:57→21:17)
[2021-08-27] MEDS: NOREPINEPHRINE 8 MG/250ML KIT 250 ML IV SCH (15:45)
[2021-08-28] VITALS (19 sets, daily range): BP systolic 84–151; BP diastolic 48–87
[2021-08-28 04:30] LABS: Basophils # (auto) 0 10 ^3/uL (0-0.2); Basophils % (auto) 0.3 % (0.0-2.0); Eosinophils # (auto) 0 10 ^3/uL (0-0.8); Hematocrit 33.7 % (36.0-46.0); Lymphocytes # (auto) 0.6 10 ^3/uL (0.4-5.4); Lymphocytes % (auto) 4.5 % (10.0-50.0); Mean Corpuscular Hemoglobin 28.4 pg (28.0-32.0); Mean Corpuscular Hgb Conc. 32.6 g/dL (32.0-36.0); Mean Corpuscular Volume 87.2 fL (80.0-100.0); Monocytes % (auto) 7.9 % (0.0-12.0); Neutrophils # (auto) 11.4 10 ^3/uL (1.6-8.6); Neutrophils % (auto) 87.3 % (37.0-80.0); Nucleated Red Blood Cells % 0.6 %; Red Blood Cells 3.86 10^6/uL (4.0-5.20); Red Cell Distribution Width 13.8 % (11.8-14.3)
[2021-08-28 04:55] LABS: Calcium 8.3 mg/dL (8.5-10.1)
[2021-08-28 04:58] LABS: BUN/Creatinine Ratio 78.6
[2021-08-28 05:00] LABS: Bilirubin, Total 0.6 mg/dL (0.2-1.0); Total Protein 5.7 g/dL (6.4-8.2)
[2021-08-28] MEDS: METOCLOPRAMIDE HCL 5MG/ml INJ 2ml VIAL IV SCH ×3 (06:02→22:19)
[2021-08-28] MEDS: Ensure HIGH Protein Vanilla 8oz Bottle PO SCH ×3 (08:00→17:42)
[2021-08-28] MEDS: ALBUTEROL SULF 2.5 MG/0.5ML(0.5%) NEB SOLN NEB PRN (08:21)
[2021-08-28] MEDS: FUROSEMIDE 40 MG/4 ML VIAL IV SCH (10:00)
[2021-08-28] MEDS: CHOLECALCIFEROL (VITD3) 2,000 UNIT CAP/TAB PO SCH (10:05)
[2021-08-28] MEDS: ZINC SULFATE 220mg CAP or TAB PO SCH (10:05)
[2021-08-28] MEDS: ASCORBIC ACID 1,000 MG TAB PO SCH (10:06)
[2021-08-28] MEDS: FAMOTIDINE (10MG/ML) 2ML VL IV SCH ×2 (10:06→22:19)
[2021-08-28] MEDS: MULTIPLE VITAMIN TAB PO SCH (10:06)
[2021-08-28] MEDS: DexAMETHasone SOD PHOS 10MG/1ML VIAL INJ IV SCH (10:06)
[2021-08-28] MEDS: ASPirin 81 mg TAB PO SCH (10:08)
[2021-08-28] MEDS: PROPOFOL 100 ML IV SCH (13:30)
[2021-08-28] MEDS: NOREPINEPHRINE 8 MG/250ML KIT 250 ML IV SCH (13:42)
[2021-08-28] MEDS: MIDAZOLAM DRIP 50 mg/50mL 50 ML IV SCH (15:56)
[2021-08-29] VITALS (19 sets, daily range): BP systolic 78–156; BP diastolic 53–92
[2021-08-29] MEDS: fentaNYL Drip 2500mCg/250mlNS 250 ML IV SCH (00:09)
[2021-08-29] MEDS: MIDAZOLAM DRIP 50 mg/50mL 50 ML IV SCH ×2 (01:37→05:56)
[2021-08-29] MEDS: ACETAMINOPHEN 500 MG TAB PO PRN (03:25)
[2021-08-29 04:29] LABS: Basophils # (auto) 0.1 10 ^3/uL (0-0.2); Basophils % (auto) 0.8 % (0.0-2.0); Eosinophils # (auto) 0 10 ^3/uL (0-0.8); Eosinophils % (auto) 0.2 % (0.0-7.0); Hematocrit 36.5 % (36.0-46.0); Hemoglobin 12.1 g/dL (12.2-16.2); Lymphocytes % (auto) 6.2 % (10.0-50.0); Mean Corpuscular Hemoglobin 28.6 pg (28.0-32.0); Mean Corpuscular Hgb Conc. 33.1 g/dL (32.0-36.0); Mean Corpuscular Volume 86.5 fL (80.0-100.0); Monocytes # (auto) 1.4 10 ^3/uL (0-1.3); Monocytes % (auto) 8.6 % (0.0-12.0); Neutrophils % (auto) 84.2 % (37.0-80.0); Red Blood Cells 4.21 10^6/uL (4.0-5.20); Red Cell Distribution Width 14.2 % (11.8-14.3); White Blood Cell 16.6 10^3/uL (4.4-10.8)
[2021-08-29 04:42] LABS: Albumin 2.1 g/dL (3.4-5.0); BUN/Creatinine Ratio 66.7; Potassium 3.4 mmol/L (3.5-5.1)
[2021-08-29 04:45] LABS: Bilirubin, Total 1.2 mg/dL (0.2-1.0); Total Protein 6.1 g/dL (6.4-8.2)
[2021-08-29] MEDS: METOCLOPRAMIDE HCL 5MG/ml INJ 2ml VIAL IV SCH ×3 (05:55→21:38)
[2021-08-29] MEDS: Ensure HIGH Protein Vanilla 8oz Bottle PO SCH ×3 (08:00→17:55)
[2021-08-29] MEDS: ASPirin 81 mg TAB PO SCH (10:00)
[2021-08-29] MEDS: FUROSEMIDE 40 MG/4 ML VIAL IV SCH (10:00)
[2021-08-29] MEDS: ZINC SULFATE 220mg CAP or TAB PO SCH (10:00)
[2021-08-29] MEDS: CHOLECALCIFEROL (VITD3) 2,000 UNIT CAP/TAB PO SCH (10:00)
[2021-08-29] MEDS: ASCORBIC ACID 1,000 MG TAB PO SCH (10:00)
[2021-08-29] MEDS: DexAMETHasone SOD PHOS 10MG/1ML VIAL INJ IV SCH (10:00)
[2021-08-29] MEDS: FAMOTIDINE (10MG/ML) 2ML VL IV SCH ×2 (10:00→21:38)
[2021-08-29] MEDS: MULTIPLE VITAMIN TAB PO SCH (10:00)
[2021-08-29] MEDS ORDERED: POTASSIUM CHL 20MEQ/50ML 50 ML IV ONE (13:15)
[2021-08-29] MEDS ORDERED: VANCOMYCIN 1GM/250ML 250 ML IV ONE (13:15)
[2021-08-29] MEDS ORDERED: VANCOMYCIN PER PHARMACY 0 MG IV SCH (13:15)
[2021-08-29] MEDS: PROPOFOL 100 ML IV SCH (13:30)
[2021-08-29] MEDS: MEROPENEM 1GM IVPB 100 ML IV SCH ×2 (14:00→22:53)
[2021-08-29] MEDS: NOREPINEPHRINE 8 MG/250ML KIT 250 ML IV SCH (15:30)
[2021-08-29 19:21] LABS: Urine Bacteria FEW /hpf (None Seen); Urine Blood 3+ /uL (Negative); Urine Mucus FEW (None Seen); Urine Specific Gravity 1.024 (1.001-1.035); Urine WBC 31 /hpf (0 - 5)
[2021-08-29] MEDS: VANCOMYCIN 1GM/250ML 250 ML IV SCH (21:36)
[2021-08-30] VITALS (49 sets, daily range): BP systolic 63–182; BP diastolic 30–109
[2021-08-30 04:46] LABS: Basophils # (auto) 0 10 ^3/uL (0-0.2); Basophils % (auto) 0.2 % (0.0-2.0); Eosinophils # (auto) 0 10 ^3/uL (0-0.8); Hematocrit 32.8 % (36.0-46.0); Hemoglobin 10.9 g/dL (12.2-16.2); Lymphocytes # (auto) 0.4 10 ^3/uL (0.4-5.4); Lymphocytes % (auto) 3.1 % (10.0-50.0); Mean Corpuscular Hemoglobin 28.7 pg (28.0-32.0); Mean Corpuscular Hgb Conc. 33.1 g/dL (32.0-36.0); Mean Corpuscular Volume 86.7 fL (80.0-100.0); Monocytes # (auto) 1.1 10 ^3/uL (0-1.3); Monocytes % (auto) 7.9 % (0.0-12.0); Neutrophils # (auto) 12.6 10 ^3/uL (1.6-8.6); Neutrophils % (auto) 88.8 % (37.0-80.0); Nucleated Red Blood Cells % 0.3 %; Red Blood Cells 3.78 10^6/uL (4.0-5.20); Red Cell Distribution Width 13.9 % (11.8-14.3); White Blood Cell 14.2 10^3/uL (4.4-10.8)
[2021-08-30 05:02] LABS: Potassium 4.1 mmol/L (3.5-5.1)
[2021-08-30 05:08] LABS: Albumin 1.9 g/dL (3.4-5.0); BUN/Creatinine Ratio 61.3; Calcium 7.9 mg/dL (8.5-10.1); Magnesium 2.3 mg/dL (1.6-2.6)
[2021-08-30 05:11] LABS: Bilirubin, Total 1.1 mg/dL (0.2-1.0); Total Protein 5.4 g/dL (6.4-8.2)
[2021-08-30] MEDS: MEROPENEM 1GM IVPB 100 ML IV SCH ×3 (05:50→22:09)
[2021-08-30] MEDS: MIDAZOLAM DRIP 50 mg/50mL 50 ML IV SCH ×2 (05:51→12:55)
[2021-08-30] MEDS: METOCLOPRAMIDE HCL 5MG/ml INJ 2ml VIAL IV SCH ×3 (05:51→22:09)
[2021-08-30] MEDS: fentaNYL Drip 2500mCg/250mlNS 250 ML IV SCH ×2 (07:45→22:10)
[2021-08-30] MEDS: Ensure HIGH Protein Vanilla 8oz Bottle PO SCH ×3 (08:00→18:00)
[2021-08-30] MEDS: VANCOMYCIN 1GM/250ML 250 ML IV SCH ×2 (10:01→21:00)
[2021-08-30] MEDS: FAMOTIDINE (10MG/ML) 2ML VL IV SCH ×2 (10:01→22:09)
[2021-08-30] MEDS: ASCORBIC ACID 1,000 MG TAB PO SCH (10:01)
[2021-08-30] MEDS: MULTIPLE VITAMIN TAB PO SCH (10:01)
[2021-08-30] MEDS: FUROSEMIDE 40 MG/4 ML VIAL IV SCH (10:02)
[2021-08-30] MEDS: CHOLECALCIFEROL (VITD3) 2,000 UNIT CAP/TAB PO SCH (10:03)
[2021-08-30] MEDS: DexAMETHasone SOD PHOS 10MG/1ML VIAL INJ IV SCH (10:03)
[2021-08-30] MEDS: ZINC SULFATE 220mg CAP or TAB PO SCH (10:03)
[2021-08-30] MEDS: ASPirin 81 mg TAB PO SCH (10:03)
[2021-08-30] MEDS: PROPOFOL 100 ML IV SCH (13:30)
[2021-08-30] MEDS: NOREPINEPHRINE 8 MG/250ML KIT 250 ML IV SCH (15:30)
[2021-08-31] VITALS (63 sets, daily range): BP systolic 80–181; BP diastolic 48–105
[2021-08-31 05:02] LABS: Basophils # (auto) 0.1 10 ^3/uL (0-0.2); Basophils % (auto) 0.5 % (0.0-2.0); Eosinophils # (auto) 0 10 ^3/uL (0-0.8); Hematocrit 35.9 % (36.0-46.0); Hemoglobin 11.9 g/dL (12.2-16.2); Lymphocytes # (auto) 0.9 10 ^3/uL (0.4-5.4); Lymphocytes % (auto) 4.5 % (10.0-50.0); Mean Corpuscular Hemoglobin 28.9 pg (28.0-32.0); Mean Corpuscular Hgb Conc. 33.3 g/dL (32.0-36.0); Monocytes # (auto) 1.7 10 ^3/uL (0-1.3); Monocytes % (auto) 8.8 % (0.0-12.0); Neutrophils # (auto) 16.6 10 ^3/uL (1.6-8.6); Neutrophils % (auto) 86.2 % (37.0-80.0); Red Blood Cells 4.12 10^6/uL (4.0-5.20); Red Cell Distribution Width 14.4 % (11.8-14.3); White Blood Cell 19.3 10^3/uL (4.4-10.8)
[2021-08-31 05:22] LABS: Albumin 2.3 g/dL (3.4-5.0); Calcium 8.5 mg/dL (8.5-10.1); Magnesium 2.4 mg/dL (1.6-2.6); Potassium 4.2 mmol/L (3.5-5.1); Total Protein 6.3 g/dL (6.4-8.2)
[2021-08-31] MEDS: MEROPENEM 1GM IVPB 100 ML IV SCH ×3 (06:36→22:51)
[2021-08-31] MEDS: METOCLOPRAMIDE HCL 5MG/ml INJ 2ml VIAL IV SCH ×3 (06:36→22:52)
[2021-08-31] MEDS: Ensure HIGH Protein Vanilla 8oz Bottle PO SCH ×3 (08:00→18:00)
[2021-08-31] MEDS: MULTIPLE VITAMIN TAB PO SCH (09:11)
[2021-08-31] MEDS: ZINC SULFATE 220mg CAP or TAB PO SCH (09:11)
[2021-08-31] MEDS: ASPirin 81 mg TAB PO SCH (09:12)
[2021-08-31] MEDS: ASCORBIC ACID 1,000 MG TAB PO SCH (09:12)
[2021-08-31] MEDS: CHOLECALCIFEROL (VITD3) 2,000 UNIT CAP/TAB PO SCH (09:12)
[2021-08-31] MEDS: FAMOTIDINE (10MG/ML) 2ML VL IV SCH ×2 (09:13→22:51)
[2021-08-31] MEDS: DexAMETHasone SOD PHOS 10MG/1ML VIAL INJ IV SCH (09:13)
[2021-08-31] MEDS: FUROSEMIDE 40 MG/4 ML VIAL IV SCH (09:13)
[2021-08-31] MEDS: VANCOMYCIN 1GM/250ML 250 ML IV SCH (09:39)
[2021-08-31] MEDS: fentaNYL Drip 2500mCg/250mlNS 250 ML IV SCH (11:41)
[2021-08-31] MEDS: MIDAZOLAM DRIP 50 mg/50mL 50 ML IV SCH ×2 (11:50→17:23)
[2021-08-31] MEDS: PROPOFOL 100 ML IV SCH (13:30)
[2021-08-31] MEDS: NOREPINEPHRINE 8 MG/250ML KIT 250 ML IV SCH (17:22)
[2021-09-01] VITALS (25 sets, daily range): BP systolic 64–145; BP diastolic 37–86
[2021-09-01] MEDS: METOCLOPRAMIDE HCL 5MG/ml INJ 2ml VIAL IV SCH ×3 (06:00→22:00)
[2021-09-01] MEDS: MEROPENEM 1GM IVPB 100 ML IV SCH ×3 (06:00→22:00)
[2021-09-01 06:17] LABS: Basophils # (auto) 0.1 10 ^3/uL (0-0.2); Basophils % (auto) 0.4 % (0.0-2.0); Eosinophils # (auto) 0 10 ^3/uL (0-0.8); Eosinophils % (auto) 0.2 % (0.0-7.0); Hematocrit 34.1 % (36.0-46.0); Hemoglobin 11.2 g/dL (12.2-16.2); Lymphocytes # (auto) 1.1 10 ^3/uL (0.4-5.4); Lymphocytes % (auto) 5.9 % (10.0-50.0); Mean Corpuscular Hemoglobin 28.8 pg (28.0-32.0); Mean Corpuscular Volume 87.3 fL (80.0-100.0); Monocytes # (auto) 1.6 10 ^3/uL (0-1.3); Monocytes % (auto) 8.6 % (0.0-12.0); Neutrophils # (auto) 15.3 10 ^3/uL (1.6-8.6); Neutrophils % (auto) 84.9 % (37.0-80.0); Nucleated Red Blood Cells % 0.2 %; Red Cell Distribution Width 14.6 % (11.8-14.3)
[2021-09-01 06:18] LABS: Albumin 2.2 g/dL (3.4-5.0); Calcium 8.1 mg/dL (8.5-10.1); Magnesium 3.4 mg/dL (1.6-2.6); Potassium 3.7 mmol/L (3.5-5.1)
[2021-09-01 06:22] LABS: BUN/Creatinine Ratio 51.4; Bilirubin, Total 0.8 mg/dL (0.2-1.0); Total Protein 6.2 g/dL (6.4-8.2)
[2021-09-01] MEDS: Ensure HIGH Protein Vanilla 8oz Bottle PO SCH ×3 (08:00→17:51)
[2021-09-01] MEDS: VANCOMYCIN 1GM/250ML 250 ML IV SCH ×3 (09:20→17:14)
[2021-09-01] MEDS: FUROSEMIDE 40 MG/4 ML VIAL IV SCH (10:00)
[2021-09-01] MEDS: DexAMETHasone SOD PHOS 10MG/1ML VIAL INJ IV SCH (10:00)
[2021-09-01] MEDS: ASCORBIC ACID 1,000 MG TAB PO SCH (10:00)
[2021-09-01] MEDS: FAMOTIDINE (10MG/ML) 2ML VL IV SCH ×2 (10:00→22:00)
[2021-09-01] MEDS: ASPirin 81 mg TAB PO SCH (10:00)
[2021-09-01] MEDS: ZINC SULFATE 220mg CAP or TAB PO SCH (10:00)
[2021-09-01] MEDS: CHOLECALCIFEROL (VITD3) 2,000 UNIT CAP/TAB PO SCH (10:00)
[2021-09-01] MEDS: MULTIPLE VITAMIN TAB PO SCH (10:00)
[2021-09-01] MEDS: PROPOFOL 100 ML IV SCH (13:30)
[2021-09-01] MEDS: fentaNYL Drip 2500mCg/250mlNS 250 ML IV SCH (13:30)
[2021-09-01] MEDS: NOREPINEPHRINE 8 MG/250ML KIT 250 ML IV SCH (15:30)
[2021-09-01 19:53] LABS: INR 1.28 (0.9-1.15)
[2021-09-02] VITALS (29 sets, daily range): BP systolic 86–166; BP diastolic 51–107
[2021-09-02] MEDS: VANCOMYCIN 1GM/250ML 250 ML IV SCH ×3 (01:00→17:12)
[2021-09-02] MEDS: METOCLOPRAMIDE HCL 5MG/ml INJ 2ml VIAL IV SCH ×3 (06:00→22:45)
[2021-09-02] MEDS: MEROPENEM 1GM IVPB 100 ML IV SCH ×3 (06:00→22:45)
[2021-09-02 07:19] LABS: Basophils # (auto) 0.1 10 ^3/uL (0-0.2); Basophils % (auto) 0.7 % (0.0-2.0); Eosinophils # (auto) 0 10 ^3/uL (0-0.8); Eosinophils % (auto) 0.1 % (0.0-7.0); Hematocrit 34.7 % (36.0-46.0); Hemoglobin 11.2 g/dL (12.2-16.2); Lymphocytes # (auto) 0.9 10 ^3/uL (0.4-5.4); Mean Corpuscular Hemoglobin 28.3 pg (28.0-32.0); Mean Corpuscular Hgb Conc. 32.3 g/dL (32.0-36.0); Mean Corpuscular Volume 87.7 fL (80.0-100.0); Monocytes # (auto) 1.6 10 ^3/uL (0-1.3); Monocytes % (auto) 8.7 % (0.0-12.0); Neutrophils # (auto) 15.3 10 ^3/uL (1.6-8.6); Neutrophils % (auto) 85.5 % (37.0-80.0); Red Blood Cells 3.96 10^6/uL (4.0-5.20); Red Cell Distribution Width 14.4 % (11.8-14.3); White Blood Cell 17.9 10^3/uL (4.4-10.8)
[2021-09-02 07:37] LABS: BUN/Creatinine Ratio 46.9; Calcium 8.2 mg/dL (8.5-10.1); Magnesium 3.4 mg/dL (1.6-2.6)
[2021-09-02] MEDS: Ensure HIGH Protein Vanilla 8oz Bottle PO SCH ×3 (08:00→17:47)
[2021-09-02] MEDS: MIDAZOLAM DRIP 50 mg/50mL 50 ML IV SCH ×2 (08:30→13:00)
[2021-09-02] MEDS: FAMOTIDINE (10MG/ML) 2ML VL IV SCH ×2 (09:50→22:45)
[2021-09-02] MEDS: CHOLECALCIFEROL (VITD3) 2,000 UNIT CAP/TAB PO SCH (09:50)
[2021-09-02] MEDS: ASPirin 81 mg TAB PO SCH (09:50)
[2021-09-02] MEDS: ASCORBIC ACID 1,000 MG TAB PO SCH (09:50)
[2021-09-02] MEDS: FUROSEMIDE 40 MG/4 ML VIAL IV SCH (09:50)
[2021-09-02] MEDS: ZINC SULFATE 220mg CAP or TAB PO SCH (09:50)
[2021-09-02] MEDS: MULTIPLE VITAMIN TAB PO SCH (09:50)
[2021-09-02] MEDS: DexAMETHasone SOD PHOS 10MG/1ML VIAL INJ IV SCH (09:50)
[2021-09-02] MEDS: fentaNYL Drip 2500mCg/250mlNS 250 ML IV SCH (12:59)
[2021-09-02] MEDS: PROPOFOL 100 ML IV SCH (12:59)
[2021-09-02 14:37] LABS: INR 1.25 (0.9-1.15); Partial Thromboplastin Time 27.1 sec (23.6-33.0)
[2021-09-02] MEDS: NOREPINEPHRINE 8 MG/250ML KIT 250 ML IV SCH (15:30)
[2021-09-03] VITALS (28 sets, daily range): BP systolic 89–162; BP diastolic 50–116
[2021-09-03] MEDS: VANCOMYCIN 1GM/250ML 250 ML IV SCH ×3 (01:30→17:00)
[2021-09-03] MEDS: MEROPENEM 1GM IVPB 100 ML IV SCH ×3 (06:00→22:23)
[2021-09-03] MEDS: METOCLOPRAMIDE HCL 5MG/ml INJ 2ml VIAL IV SCH ×3 (06:00→22:23)
[2021-09-03] MEDS: Ensure HIGH Protein Vanilla 8oz Bottle PO SCH ×3 (07:49→18:00)
[2021-09-03 09:04] LABS: Basophils # (auto) 0.1 10 ^3/uL (0-0.2); Basophils % (auto) 0.5 % (0.0-2.0); Eosinophils # (auto) 0.1 10 ^3/uL (0-0.8); Eosinophils % (auto) 0.8 % (0.0-7.0); Hemoglobin 10.8 g/dL (12.2-16.2); Lymphocytes # (auto) 1.2 10 ^3/uL (0.4-5.4); Lymphocytes % (auto) 8.6 % (10.0-50.0); Mean Corpuscular Hemoglobin 28.8 pg (28.0-32.0); Mean Corpuscular Hgb Conc. 32.8 g/dL (32.0-36.0); Mean Corpuscular Volume 87.8 fL (80.0-100.0); Monocytes # (auto) 1.2 10 ^3/uL (0-1.3); Monocytes % (auto) 8.7 % (0.0-12.0); Neutrophils # (auto) 11.2 10 ^3/uL (1.6-8.6); Neutrophils % (auto) 81.4 % (37.0-80.0); Red Blood Cells 3.76 10^6/uL (4.0-5.20); Red Cell Distribution Width 14.6 % (11.8-14.3); White Blood Cell 13.8 10^3/uL (4.4-10.8)
[2021-09-03 09:27] LABS: Potassium 3.8 mmol/L (3.5-5.1)
[2021-09-03 09:30] LABS: Calcium 8.5 mg/dL (8.5-10.1); Magnesium 2.2 mg/dL (1.6-2.6)
[2021-09-03] MEDS: FUROSEMIDE 40 MG/4 ML VIAL IV SCH (09:30)
[2021-09-03] MEDS: ZINC SULFATE 220mg CAP or TAB PO SCH (09:30)
[2021-09-03] MEDS: MULTIPLE VITAMIN TAB PO SCH (09:30)
[2021-09-03] MEDS: CHOLECALCIFEROL (VITD3) 2,000 UNIT CAP/TAB PO SCH (09:30)
[2021-09-03] MEDS: FAMOTIDINE (10MG/ML) 2ML VL IV SCH (09:30)
[2021-09-03] MEDS: DexAMETHasone SOD PHOS 10MG/1ML VIAL INJ IV SCH (09:30)
[2021-09-03] MEDS: ASCORBIC ACID 1,000 MG TAB PO SCH (09:30)
[2021-09-03] MEDS: ALBUTEROL SULF 2.5 MG/0.5ML(0.5%) NEB SOLN NEB PRN (09:49)
[2021-09-03] MEDS: ASPirin 81 mg TAB PO SCH (10:00)
[2021-09-03] MEDS ORDERED: MIDAZOLAM HCL 2MG/2ML 2ml VIAL (1mg/ml) ONE ×2 (10:52→12:14)
[2021-09-03] MEDS ORDERED: fentaNYL CITRATE 100 MCG/2 ML VL ONE ×2 (10:52→12:10)
[2021-09-03] MEDS ORDERED: HYDROmorphone HCL 2 MG/ML VL ONE ×2 (10:52→12:56)
[2021-09-03] MEDS ORDERED: PROPOFOL 10 MG/ML 20 ML IV ONE (12:09)
[2021-09-03] MEDS ORDERED: DexAMETHasone SOD PHOS 10MG/1ML VIAL INJ ONE (12:09)
[2021-09-03] MEDS ORDERED: LIDOCAINE W/ EPINEPHRINE 1% 20ML VIAL ONE (12:16)
[2021-09-03] MEDS ORDERED: ROCURONIUM 10MG/ML 10ML VIAL IV ONE (12:59)
[2021-09-03] MEDS: PROPOFOL 100 ML IV SCH (13:30)
[2021-09-03] MEDS: MIDAZOLAM DRIP 50 mg/50mL 50 ML IV SCH (14:00)
[2021-09-03] MEDS: fentaNYL Drip 2500mCg/250mlNS 250 ML IV SCH (14:00)
[2021-09-03] MEDS: NOREPINEPHRINE 8 MG/250ML KIT 250 ML IV SCH (15:09)
[2021-09-03] MEDS: PANTOPRAZOLE 40 MG/10 ML VIAL INJ IV SCH (22:23)
[2021-09-04] VITALS (51 sets, daily range): BP systolic 87–170; BP diastolic 54–98
[2021-09-04] MEDS: VANCOMYCIN 1GM/250ML 250 ML IV SCH ×3 (02:24→17:30)
[2021-09-04 04:28] LABS: Basophils # (auto) 0 10 ^3/uL (0-0.2); Basophils % (auto) 0.2 % (0.0-2.0); Eosinophils # (auto) 0 10 ^3/uL (0-0.8); Hematocrit 31.9 % (36.0-46.0); Hemoglobin 10.5 g/dL (12.2-16.2); Lymphocytes # (auto) 0.5 10 ^3/uL (0.4-5.4); Lymphocytes % (auto) 4.3 % (10.0-50.0); Mean Corpuscular Hemoglobin 28.9 pg (28.0-32.0); Mean Corpuscular Volume 87.8 fL (80.0-100.0); Monocytes # (auto) 0.9 10 ^3/uL (0-1.3); Monocytes % (auto) 6.9 % (0.0-12.0); Neutrophils % (auto) 88.6 % (37.0-80.0); Red Blood Cells 3.64 10^6/uL (4.0-5.20); Red Cell Distribution Width 14.6 % (11.8-14.3); White Blood Cell 12.4 10^3/uL (4.4-10.8)
[2021-09-04 04:56] LABS: Potassium 3.9 mmol/L (3.5-5.1)
[2021-09-04 05:06] LABS: BUN/Creatinine Ratio 59.3; Calcium 8.1 mg/dL (8.5-10.1); Magnesium 2.4 mg/dL (1.6-2.6)
[2021-09-04] MEDS: METOCLOPRAMIDE HCL 5MG/ml INJ 2ml VIAL IV SCH ×3 (06:00→22:00)
[2021-09-04] MEDS: MEROPENEM 1GM IVPB 100 ML IV SCH ×3 (06:51→22:11)
[2021-09-04] MEDS: Ensure HIGH Protein Vanilla 8oz Bottle PO SCH ×3 (08:00→18:00)
[2021-09-04] MEDS: DexAMETHasone SOD PHOS 10MG/1ML VIAL INJ IV SCH (09:30)
[2021-09-04] MEDS: PANTOPRAZOLE 40 MG/10 ML VIAL INJ IV SCH ×2 (09:30→22:11)
[2021-09-04] MEDS: FUROSEMIDE 40 MG/4 ML VIAL IV SCH (09:30)
[2021-09-04] MEDS: ASPirin 81 mg TAB PO SCH (10:00)
[2021-09-04 11:00] LABS: INR 1.23 (0.9-1.15); Partial Thromboplastin Time 24.8 sec (23.6-33.0)
[2021-09-04] MEDS: CHOLECALCIFEROL (VITD3) 2,000 UNIT CAP/TAB PO SCH (12:31)
[2021-09-04] MEDS: ASCORBIC ACID 1,000 MG TAB PO SCH (12:31)
[2021-09-04] MEDS: ZINC SULFATE 220mg CAP or TAB PO SCH (12:31)
[2021-09-04] MEDS: MULTIPLE VITAMIN TAB PO SCH (12:31)
[2021-09-04] MEDS: fentaNYL Drip 2500mCg/250mlNS 250 ML IV SCH (13:00)
[2021-09-04] MEDS: PROPOFOL 100 ML IV SCH (13:30)
[2021-09-04] MEDS: MIDAZOLAM DRIP 50 mg/50mL 50 ML IV SCH (15:00)
[2021-09-04] MEDS: NOREPINEPHRINE 8 MG/250ML KIT 250 ML IV SCH (15:30)
[2021-09-04 17:17] LABS: Basophils # (auto) 0.1 10 ^3/uL (0-0.2); Basophils % (auto) 0.5 % (0.0-2.0); Eosinophils # (auto) 0 10 ^3/uL (0-0.8); Lymphocytes # (auto) 0.3 10 ^3/uL (0.4-5.4); Lymphocytes % (auto) 2.1 % (10.0-50.0); Mean Corpuscular Hemoglobin 28.6 pg (28.0-32.0); Mean Corpuscular Hgb Conc. 32.5 g/dL (32.0-36.0); Mean Corpuscular Volume 88.2 fL (80.0-100.0); Monocytes # (auto) 0.7 10 ^3/uL (0-1.3); Monocytes % (auto) 4.2 % (0.0-12.0); Neutrophils # (auto) 15.5 10 ^3/uL (1.6-8.6); Neutrophils % (auto) 93.2 % (37.0-80.0); Red Blood Cells 3.85 10^6/uL (4.0-5.20); Red Cell Distribution Width 14.7 % (11.8-14.3); White Blood Cell 16.7 10^3/uL (4.4-10.8)
[2021-09-05] VITALS (88 sets, daily range): BP systolic 83–182; BP diastolic 47–117
[2021-09-05 00:15] LABS: Basophils # (auto) 0 10 ^3/uL (0-0.2); Eosinophils # (auto) 0.1 10 ^3/uL (0-0.8); Eosinophils % (auto) 0.7 % (0.0-7.0); Hematocrit 32.6 % (36.0-46.0); Hemoglobin 10.8 g/dL (12.2-16.2); Lymphocytes # (auto) 0.9 10 ^3/uL (0.4-5.4); Lymphocytes % (auto) 5.4 % (10.0-50.0); Mean Corpuscular Hemoglobin 28.9 pg (28.0-32.0); Mean Corpuscular Hgb Conc. 33.1 g/dL (32.0-36.0); Mean Corpuscular Volume 87.2 fL (80.0-100.0); Neutrophils # (auto) 14.6 10 ^3/uL (1.6-8.6); Neutrophils % (auto) 87.9 % (37.0-80.0); Red Blood Cells 3.74 10^6/uL (4.0-5.20); Red Cell Distribution Width 14.3 % (11.8-14.3); White Blood Cell 16.6 10^3/uL (4.4-10.8)
[2021-09-05] MEDS: VANCOMYCIN 1GM/250ML 250 ML IV SCH ×4 (01:00→17:00)
[2021-09-05] MEDS: METOCLOPRAMIDE HCL 5MG/ml INJ 2ml VIAL IV SCH ×3 (06:00→22:17)
[2021-09-05] MEDS: MEROPENEM 1GM IVPB 100 ML IV SCH ×3 (06:00→22:17)
[2021-09-05] MEDS: Ensure HIGH Protein Vanilla 8oz Bottle PO SCH ×3 (08:00→18:00)
[2021-09-05 08:27] LABS: Basophils # (auto) 0 10 ^3/uL (0-0.2); Basophils % (auto) 0.1 % (0.0-2.0); Eosinophils # (auto) 0.1 10 ^3/uL (0-0.8); Eosinophils % (auto) 0.7 % (0.0-7.0); Hematocrit 31.5 % (36.0-46.0); Hemoglobin 10.4 g/dL (12.2-16.2); Lymphocytes # (auto) 1.4 10 ^3/uL (0.4-5.4); Lymphocytes % (auto) 8.5 % (10.0-50.0); Mean Corpuscular Hgb Conc. 32.9 g/dL (32.0-36.0); Mean Corpuscular Volume 88.2 fL (80.0-100.0); Monocytes # (auto) 1.2 10 ^3/uL (0-1.3); Monocytes % (auto) 7.4 % (0.0-12.0); Neutrophils # (auto) 13.3 10 ^3/uL (1.6-8.6); Neutrophils % (auto) 83.3 % (37.0-80.0); Nucleated Red Blood Cells % 0.1 %; Red Blood Cells 3.58 10^6/uL (4.0-5.20); Red Cell Distribution Width 14.8 % (11.8-14.3); White Blood Cell 15.9 10^3/uL (4.4-10.8)
[2021-09-05 09:05] LABS: Potassium 3.1 mmol/L (3.5-5.1)
[2021-09-05 09:13] LABS: BUN/Creatinine Ratio 89.5; Calcium 8.6 mg/dL (8.5-10.1)
[2021-09-05] MEDS: ASCORBIC ACID 1,000 MG TAB PO SCH (10:00)
[2021-09-05] MEDS: CHOLECALCIFEROL (VITD3) 2,000 UNIT CAP/TAB PO SCH (10:00)
[2021-09-05] MEDS: FUROSEMIDE 40 MG/4 ML VIAL IV SCH (10:00)
[2021-09-05] MEDS: MULTIPLE VITAMIN TAB PO SCH (10:00)
[2021-09-05] MEDS: PANTOPRAZOLE 40 MG/10 ML VIAL INJ IV SCH ×2 (10:00→22:16)
[2021-09-05] MEDS: ASPirin 81 mg TAB PO SCH (10:00)
[2021-09-05] MEDS: DexAMETHasone SOD PHOS 10MG/1ML VIAL INJ IV SCH (10:00)
[2021-09-05] MEDS: ZINC SULFATE 220mg CAP or TAB PO SCH (10:00)
[2021-09-05] MEDS: POTASSIUM CHL 10MEQ/50ML 50 ML IV SCH ×4 (12:45→15:45)
[2021-09-05] MEDS: fentaNYL Drip 2500mCg/250mlNS 250 ML IV SCH (13:30)
[2021-09-05] MEDS: PROPOFOL 100 ML IV SCH (13:30)
[2021-09-05] MEDS: MIDAZOLAM DRIP 50 mg/50mL 50 ML IV SCH (13:30)
[2021-09-05] MEDS: NOREPINEPHRINE 8 MG/250ML KIT 250 ML IV SCH (15:30)
[2021-09-06] VITALS (56 sets, daily range): BP systolic 88–174; BP diastolic 44–108
[2021-09-06] MEDS: fentaNYL Drip 2500mCg/250mlNS 250 ML IV SCH (00:03)
[2021-09-06] MEDS: VANCOMYCIN 1GM/250ML 250 ML IV SCH ×3 (00:56→17:21)
[2021-09-06 05:34] LABS: Potassium 5.2 mmol/L (3.5-5.1)
[2021-09-06 05:44] LABS: BUN/Creatinine Ratio 63.6; Calcium 8.9 mg/dL (8.5-10.1)
[2021-09-06] MEDS: MEROPENEM 1GM IVPB 100 ML IV SCH ×3 (05:58→21:27)
[2021-09-06] MEDS: METOCLOPRAMIDE HCL 5MG/ml INJ 2ml VIAL IV SCH ×3 (06:01→21:38)
[2021-09-06] MEDS: Ensure HIGH Protein Vanilla 8oz Bottle PO SCH ×3 (08:00→21:28)
[2021-09-06 08:04] LABS: Basophils # (auto) 0.1 10 ^3/uL (0-0.2); Basophils % (auto) 0.7 % (0.0-2.0); Eosinophils # (auto) 0.1 10 ^3/uL (0-0.8); Eosinophils % (auto) 0.4 % (0.0-7.0); Hematocrit 34.4 % (36.0-46.0); Hemoglobin 11.1 g/dL (12.2-16.2); Lymphocytes % (auto) 6.8 % (10.0-50.0); Mean Corpuscular Hemoglobin 28.5 pg (28.0-32.0); Mean Corpuscular Hgb Conc. 32.2 g/dL (32.0-36.0); Mean Corpuscular Volume 88.5 fL (80.0-100.0); Monocytes # (auto) 0.9 10 ^3/uL (0-1.3); Monocytes % (auto) 5.8 % (0.0-12.0); Neutrophils # (auto) 13.3 10 ^3/uL (1.6-8.6); Neutrophils % (auto) 86.3 % (37.0-80.0); Nucleated Red Blood Cells % 0.1 %; Red Blood Cells 3.89 10^6/uL (4.0-5.20); Red Cell Distribution Width 15.3 % (11.8-14.3); White Blood Cell 15.4 10^3/uL (4.4-10.8)
[2021-09-06 08:33] LABS: Potassium 3.7 mmol/L (3.5-5.1)
[2021-09-06 08:45] LABS: Calcium 8.5 mg/dL (8.5-10.1); Magnesium 3.1 mg/dL (1.6-2.6)
[2021-09-06] MEDS: FUROSEMIDE 40 MG/4 ML VIAL IV SCH (10:00)
[2021-09-06] MEDS: ZINC SULFATE 220mg CAP or TAB PO SCH (10:00)
[2021-09-06] MEDS: MULTIPLE VITAMIN TAB PO SCH (10:00)
[2021-09-06] MEDS: PANTOPRAZOLE 40 MG/10 ML VIAL INJ IV SCH ×2 (10:00→21:37)
[2021-09-06] MEDS: DexAMETHasone SOD PHOS 10MG/1ML VIAL INJ IV SCH (10:00)
[2021-09-06] MEDS: ASCORBIC ACID 1,000 MG TAB PO SCH (10:00)
[2021-09-06] MEDS: CHOLECALCIFEROL (VITD3) 2,000 UNIT CAP/TAB PO SCH (10:00)
[2021-09-06] MEDS: MIDAZOLAM DRIP 50 mg/50mL 50 ML IV SCH (13:30)
[2021-09-06] MEDS: PROPOFOL 100 ML IV SCH (13:30)
[2021-09-06] MEDS: NOREPINEPHRINE 8 MG/250ML KIT 250 ML IV SCH (15:30)
[2021-09-07] VITALS (23 sets, daily range): BP systolic 109–158; BP diastolic 60–91
[2021-09-07] MEDS: VANCOMYCIN 1GM/250ML 250 ML IV SCH ×4 (00:45→21:00)
[2021-09-07] MEDS: fentaNYL Drip 2500mCg/250mlNS 250 ML IV SCH (03:47)
[2021-09-07] MEDS: MEROPENEM 1GM IVPB 100 ML IV SCH ×3 (06:00→21:47)
[2021-09-07] MEDS: METOCLOPRAMIDE HCL 5MG/ml INJ 2ml VIAL IV SCH ×3 (06:03→21:48)
[2021-09-07] MEDS: Ensure HIGH Protein Vanilla 8oz Bottle PO SCH ×3 (08:04→18:11)
[2021-09-07] MEDS: DexAMETHasone SOD PHOS 10MG/1ML VIAL INJ IV SCH (10:19)
[2021-09-07] MEDS: MULTIPLE VITAMIN TAB PO SCH (10:20)
[2021-09-07] MEDS: ASCORBIC ACID 1,000 MG TAB PO SCH (10:20)
[2021-09-07] MEDS: PANTOPRAZOLE 40 MG/10 ML VIAL INJ IV SCH ×2 (10:20→21:48)
[2021-09-07] MEDS: FUROSEMIDE 40 MG/4 ML VIAL IV SCH (10:20)
[2021-09-07] MEDS: CHOLECALCIFEROL (VITD3) 2,000 UNIT CAP/TAB PO SCH (10:20)
[2021-09-07] MEDS: ZINC SULFATE 220mg CAP or TAB PO SCH (10:20)
[2021-09-07] MEDS: MIDAZOLAM DRIP 50 mg/50mL 50 ML IV SCH (13:30)
[2021-09-07] MEDS: PROPOFOL 100 ML IV SCH (13:30)
[2021-09-07] MEDS: NOREPINEPHRINE 8 MG/250ML KIT 250 ML IV SCH (15:30)
[2021-09-07] MEDS: ALBUTEROL SULF 2.5 MG/0.5ML(0.5%) NEB SOLN NEB PRN (15:44)
[2021-09-08] VITALS (36 sets, daily range): BP systolic 89–154; BP diastolic 52–88
[2021-09-08] MEDS: VANCOMYCIN 1GM/250ML 250 ML IV SCH ×3 (04:00→18:13)
[2021-09-08] MEDS: MEROPENEM 1GM IVPB 100 ML IV SCH ×3 (05:49→21:19)
[2021-09-08] MEDS: METOCLOPRAMIDE HCL 5MG/ml INJ 2ml VIAL IV SCH ×3 (05:50→21:24)
[2021-09-08] MEDS: Ensure HIGH Protein Vanilla 8oz Bottle PO SCH ×3 (08:00→18:13)
[2021-09-08] MEDS: MULTIPLE VITAMIN TAB PO SCH (10:00)
[2021-09-08] MEDS: ASCORBIC ACID 1,000 MG TAB PO SCH (10:00)
[2021-09-08] MEDS: CHOLECALCIFEROL (VITD3) 2,000 UNIT CAP/TAB PO SCH (10:00)
[2021-09-08] MEDS: DexAMETHasone SOD PHOS 10MG/1ML VIAL INJ IV SCH (10:00)
[2021-09-08] MEDS: PANTOPRAZOLE 40 MG/10 ML VIAL INJ IV SCH ×2 (10:00→21:20)
[2021-09-08] MEDS: ZINC SULFATE 220mg CAP or TAB PO SCH (10:00)
[2021-09-08] MEDS: FUROSEMIDE 40 MG/4 ML VIAL IV SCH (10:00)
[2021-09-08 15:12] LABS: BUN/Creatinine Ratio 52.6; Calcium 8.9 mg/dL (8.5-10.1); Potassium 5.3 mmol/L (3.5-5.1)
[2021-09-09] MEDS: VANCOMYCIN 1GM/250ML 250 ML IV SCH ×2 (04:59→18:39)
[2021-09-09] MEDS: METOCLOPRAMIDE HCL 5MG/ml INJ 2ml VIAL IV SCH ×3 (04:59→21:13)
[2021-09-09 05:00] VITALS: BP 117/57
[2021-09-09] MEDS: MEROPENEM 1GM IVPB 100 ML IV SCH ×3 (06:00→21:13)
[2021-09-09 07:17] LABS: Basophils # (auto) 0.1 10 ^3/uL (0-0.2); Eosinophils # (auto) 0.3 10 ^3/uL (0-0.8); Hematocrit 33.4 % (36.0-46.0); Hemoglobin 11.1 g/dL (12.2-16.2); Lymphocytes # (auto) 1.2 10 ^3/uL (0.4-5.4); Lymphocytes % (auto) 11.4 % (10.0-50.0); Mean Corpuscular Hemoglobin 30.2 pg (28.0-32.0); Mean Corpuscular Hgb Conc. 33.3 g/dL (32.0-36.0); Mean Corpuscular Volume 90.8 fL (80.0-100.0); Monocytes # (auto) 0.5 10 ^3/uL (0-1.3); Neutrophils # (auto) 8.4 10 ^3/uL (1.6-8.6); Neutrophils % (auto) 79.6 % (37.0-80.0); Nucleated Red Blood Cells % 0.2 %; Red Blood Cells 3.67 10^6/uL (4.0-5.20); Red Cell Distribution Width 16.1 % (11.8-14.3); White Blood Cell 10.6 10^3/uL (4.4-10.8)
[2021-09-09 07:27] LABS: BUN/Creatinine Ratio 64.3; Calcium 8.3 mg/dL (8.5-10.1); Magnesium 3.2 mg/dL (1.6-2.6); Potassium 5.5 mmol/L (3.5-5.1)
[2021-09-09 09:00] VITALS: BP 177/113
[2021-09-09] MEDS: PANTOPRAZOLE 40 MG/10 ML VIAL INJ IV SCH ×2 (11:01→21:13)
[2021-09-09] MEDS: ZINC SULFATE 220mg CAP or TAB PO SCH (11:02)
[2021-09-09] MEDS: ASCORBIC ACID 1,000 MG TAB PO SCH (11:02)
[2021-09-09] MEDS: Ensure HIGH Protein Vanilla 8oz Bottle PO SCH ×3 (11:02→18:00)
[2021-09-09] MEDS: MULTIPLE VITAMIN TAB PO SCH (11:02)
[2021-09-09] MEDS: CHOLECALCIFEROL (VITD3) 2,000 UNIT CAP/TAB PO SCH (11:02)
[2021-09-09] MEDS: Jevity 1.2 Cal/Fiber 1 Liter GT SCH (12:20)
[2021-09-09 13:00] VITALS: BP 108/75
[2021-09-09] MEDS: ACETAMINOPHEN 500 MG TAB PO PRN (14:45)
[2021-09-09] MEDS ORDERED: ENALAPRILAT 1.25 MG/ML-1ML VIAL IV PRN (15:00)
[2021-09-09] MEDS ORDERED: FUROSEMIDE 40 MG/4 ML VIAL IV ONE (15:00)
[2021-09-09 17:00] VITALS: BP 118/74
[2021-09-09] MEDS: HYDROcodone-ACET 5/325MG TAB PO PRN (18:42)
[2021-09-09 22:00] VITALS: BP 103/58
[2021-09-10 05:06] VITALS: BP 101/60
[2021-09-10] MEDS: MEROPENEM 1GM IVPB 100 ML IV SCH ×3 (05:27→21:07)
[2021-09-10] MEDS: METOCLOPRAMIDE HCL 5MG/ml INJ 2ml VIAL IV SCH ×3 (05:27→21:07)
[2021-09-10 07:54] LABS: Chloride 105 mmol/L (98-107); Potassium 3.3 mmol/L (3.5-5.1); Sodium 141 mmol/L (136-145)
[2021-09-10 08:06] LABS: Anion Gap 6 (5-15); Blood Urea Nitrogen 19 mg/dL (7-18); Calcium 8.2 mg/dL (8.5-10.1); Carbon Dioxide 30 mmol/L (21-32); Glucose 111 mg/dL (74-106)
[2021-09-10 08:10] LABS: BUN/Creatinine Ratio 126.7; GFR African American 635 mL/min; GFR Non-African American 525 mL/min
[2021-09-10 09:00] VITALS: BP 100/59
[2021-09-10] MEDS: VANCOMYCIN 1GM/250ML 250 ML IV SCH ×3 (09:06→21:32)
[2021-09-10] MEDS: Ensure HIGH Protein Vanilla 8oz Bottle PO SCH ×3 (09:06→17:34)
[2021-09-10] MEDS: PANTOPRAZOLE 40 MG/10 ML VIAL INJ IV SCH ×2 (10:21→21:07)
[2021-09-10] MEDS: MULTIPLE VITAMIN TAB PO SCH (10:21)
[2021-09-10] MEDS: ZINC SULFATE 220mg CAP or TAB PO SCH (10:21)
[2021-09-10] MEDS: CHOLECALCIFEROL (VITD3) 2,000 UNIT CAP/TAB PO SCH (10:22)
[2021-09-10] MEDS: ASCORBIC ACID 1,000 MG TAB PO SCH (10:22)
[2021-09-10 13:00] VITALS: BP 95/58
[2021-09-10 17:00] VITALS: BP 98/51
[2021-09-10] MEDS ORDERED: MORPHINE SULFATE INJECTION 2 MG/ML SYRG IV PRN (17:15)
[2021-09-10 22:00] VITALS: BP 102/58
[2021-09-11 05:00] VITALS: BP 101/53
[2021-09-11] MEDS: MEROPENEM 1GM IVPB 100 ML IV SCH ×3 (05:49→21:41)
[2021-09-11] MEDS: METOCLOPRAMIDE HCL 5MG/ml INJ 2ml VIAL IV SCH ×3 (05:49→20:34)
[2021-09-11] MEDS: VANCOMYCIN 1GM/250ML 250 ML IV SCH ×3 (05:49→21:40)
[2021-09-11 07:32] LABS: Potassium 3.7 mmol/L (3.5-5.1)
[2021-09-11 07:38] LABS: BUN/Creatinine Ratio 82.4; Calcium 8.4 mg/dL (8.5-10.1)
[2021-09-11] MEDS: Ensure HIGH Protein Vanilla 8oz Bottle PO SCH ×3 (08:00→17:28)
[2021-09-11 08:12] VITALS: BP 115/73
[2021-09-11] MEDS: ZINC SULFATE 220mg CAP or TAB PO SCH (10:00)
[2021-09-11] MEDS: MULTIPLE VITAMIN TAB PO SCH (10:00)
[2021-09-11] MEDS: PANTOPRAZOLE 40 MG/10 ML VIAL INJ IV SCH ×2 (10:00→20:34)
[2021-09-11] MEDS: ASCORBIC ACID 1,000 MG TAB PO SCH (10:00)
[2021-09-11] MEDS: CHOLECALCIFEROL (VITD3) 2,000 UNIT CAP/TAB PO SCH (10:00)
[2021-09-11 13:00] VITALS: BP 107/63
[2021-09-11 17:00] VITALS: BP 116/62
[2021-09-11] MEDS: HYDROcodone-ACET 5/325MG TAB PO PRN (20:35)
[2021-09-11 22:00] VITALS: BP 103/59
[2021-09-12 05:00] VITALS: BP 108/63
[2021-09-12] MEDS: VANCOMYCIN 1GM/250ML 250 ML IV SCH ×3 (05:25→21:58)
[2021-09-12] MEDS: METOCLOPRAMIDE HCL 5MG/ml INJ 2ml VIAL IV SCH ×3 (05:26→21:58)
[2021-09-12] MEDS: MEROPENEM 1GM IVPB 100 ML IV SCH ×3 (06:00→22:00)
[2021-09-12] MEDS: Ensure HIGH Protein Vanilla 8oz Bottle PO SCH ×3 (08:00→18:00)
[2021-09-12 09:00] VITALS: BP 110/67
[2021-09-12] MEDS: ASCORBIC ACID 1,000 MG TAB PO SCH (12:51)
[2021-09-12] MEDS: MULTIPLE VITAMIN TAB PO SCH (12:51)
[2021-09-12] MEDS: PANTOPRAZOLE 40 MG/10 ML VIAL INJ IV SCH ×2 (12:51→21:58)
[2021-09-12] MEDS: CHOLECALCIFEROL (VITD3) 2,000 UNIT CAP/TAB PO SCH (12:51)
[2021-09-12] MEDS: ZINC SULFATE 220mg CAP or TAB PO SCH (12:51)
[2021-09-12 12:53] VITALS: BP 106/63
[2021-09-12 16:56] VITALS: BP 106/67
[2021-09-12 20:00] VITALS: BP 93/53
[2021-09-13] MEDS: MEROPENEM 1GM IVPB 100 ML IV SCH ×3 (06:00→21:06)
[2021-09-13] MEDS: METOCLOPRAMIDE HCL 5MG/ml INJ 2ml VIAL IV SCH ×3 (06:50→21:06)
[2021-09-13] MEDS: VANCOMYCIN 1GM/250ML 250 ML IV SCH ×3 (06:51→21:05)
[2021-09-13 07:21] LABS: Potassium 3.8 mmol/L (3.5-5.1)
[2021-09-13 07:29] LABS: BUN/Creatinine Ratio 55.6; Calcium 8.3 mg/dL (8.5-10.1)
[2021-09-13 07:48] LABS: Basophils # (auto) 0 10 ^3/uL (0-0.2); Basophils % (auto) 0.3 % (0.0-2.0); Eosinophils # (auto) 0.6 10 ^3/uL (0-0.8); Eosinophils % (auto) 6.8 % (0.0-7.0); Hemoglobin 9.7 g/dL (12.2-16.2); Lymphocytes # (auto) 0.9 10 ^3/uL (0.4-5.4); Lymphocytes % (auto) 10.1 % (10.0-50.0); Mean Corpuscular Hemoglobin 29.4 pg (28.0-32.0); Mean Corpuscular Hgb Conc. 32.3 g/dL (32.0-36.0); Monocytes # (auto) 0.8 10 ^3/uL (0-1.3); Neutrophils # (auto) 6.3 10 ^3/uL (1.6-8.6); Neutrophils % (auto) 73.8 % (37.0-80.0); Nucleated Red Blood Cells % 0.3 %; Red Cell Distribution Width 15.9 % (11.8-14.3); White Blood Cell 8.6 10^3/uL (4.4-10.8)
[2021-09-13] MEDS: Ensure HIGH Protein Vanilla 8oz Bottle PO SCH (08:00)
[2021-09-13 09:00] VITALS: BP 99/61
[2021-09-13] MEDS: MULTIPLE VITAMIN TAB PO SCH (10:27)
[2021-09-13] MEDS: CHOLECALCIFEROL (VITD3) 2,000 UNIT CAP/TAB PO SCH (10:27)
[2021-09-13] MEDS: ZINC SULFATE 220mg CAP or TAB PO SCH (10:27)
[2021-09-13] MEDS: ASCORBIC ACID 1,000 MG TAB PO SCH (10:27)
[2021-09-13] MEDS: PANTOPRAZOLE 40 MG/10 ML VIAL INJ IV SCH ×2 (10:27→21:06)
[2021-09-13 12:55] VITALS: BP 117/62
[2021-09-13 16:59] VITALS: BP 109/64
[2021-09-13 20:00] VITALS: BP 92/61
[2021-09-13 22:00] VITALS: BP 104/63
[2021-09-14 05:00] VITALS: BP 139/85
[2021-09-14] MEDS: MEROPENEM 1GM IVPB 100 ML IV SCH ×3 (06:15→22:16)
[2021-09-14] MEDS: METOCLOPRAMIDE HCL 5MG/ml INJ 2ml VIAL IV SCH ×3 (06:15→22:16)
[2021-09-14 09:00] VITALS: BP 122/75
[2021-09-14] MEDS: PANTOPRAZOLE 40 MG/10 ML VIAL INJ IV SCH ×2 (09:41→22:16)
[2021-09-14] MEDS: ZINC SULFATE 220mg CAP or TAB PO SCH (09:41)
[2021-09-14] MEDS: MULTIPLE VITAMIN TAB PO SCH (09:41)
[2021-09-14] MEDS: ASCORBIC ACID 1,000 MG TAB PO SCH (09:41)
[2021-09-14] MEDS: CHOLECALCIFEROL (VITD3) 2,000 UNIT CAP/TAB PO SCH (09:41)
[2021-09-14 13:00] VITALS: BP 114/59
[2021-09-14] MEDS: VANCOMYCIN 1GM/250ML 250 ML IV SCH ×2 (14:31→22:15)
[2021-09-14 17:00] VITALS: BP 110/62
[2021-09-14 20:00] VITALS: BP 124/70
[2021-09-14 22:00] VITALS: BP 124/70
[2021-09-15 05:00] VITALS: BP 121/74
[2021-09-15] MEDS: METOCLOPRAMIDE HCL 5MG/ml INJ 2ml VIAL IV SCH ×3 (05:59→21:54)
[2021-09-15] MEDS: VANCOMYCIN 1GM/250ML 250 ML IV SCH (06:48)
[2021-09-15] MEDS: MEROPENEM 1GM IVPB 100 ML IV SCH (06:48)
[2021-09-15 07:07] LABS: Calcium 8.5 mg/dL (8.5-10.1); Potassium 3.6 mmol/L (3.5-5.1)
[2021-09-15 09:00] VITALS: BP 131/79
[2021-09-15] MEDS: ZINC SULFATE 220mg CAP or TAB PO SCH (10:07)
[2021-09-15] MEDS: PANTOPRAZOLE 40 MG/10 ML VIAL INJ IV SCH ×2 (10:07→21:54)
[2021-09-15] MEDS: CHOLECALCIFEROL (VITD3) 2,000 UNIT CAP/TAB PO SCH (10:08)
[2021-09-15] MEDS: ASCORBIC ACID 1,000 MG TAB PO SCH (10:08)
[2021-09-15 13:00] VITALS: BP 112/64
[2021-09-15 17:00] VITALS: BP 113/70
[2021-09-15] MEDS ORDERED: DOCUSATE ORAL LIQUID 100 MG/10 ML UD GT PRN (20:45)
[2021-09-15 22:00] VITALS: BP 112/64
[2021-09-16] MEDS: METOCLOPRAMIDE HCL 5MG/ml INJ 2ml VIAL IV SCH ×2 (06:32→14:00)
[2021-09-16 08:00] VITALS: BP 118/61
[2021-09-16] MEDS: ASCORBIC ACID 1,000 MG TAB GT SCH (10:30)
[2021-09-16] MEDS: CHOLECALCIFEROL (VITD3) 2,000 UNIT CAP/TAB GT SCH (10:30)
[2021-09-16] MEDS: PANTOPRAZOLE 40 MG/10 ML VIAL INJ IV SCH ×2 (10:30→21:39)
[2021-09-16] MEDS: ZINC SULFATE 220mg CAP or TAB GT SCH (10:30)
[2021-09-16 12:00] VITALS: BP 116/73
[2021-09-16] MEDS ORDERED: ENOXAPARIN SOD 40 MG/0.4 ML SYRINGE SC ONE (15:30)
[2021-09-16 16:00] VITALS: BP 116/66
[2021-09-16 22:00] VITALS: BP 108/68
[2021-09-17 05:00] VITALS: BP 109/67
[2021-09-17 08:35] VITALS: BP 105/62
[2021-09-17] MEDS: ASCORBIC ACID 1,000 MG TAB GT SCH (10:00)
[2021-09-17] MEDS: ENOXAPARIN SOD 40 MG/0.4 ML SYRINGE SC SCH (10:00)
[2021-09-17] MEDS: CHOLECALCIFEROL (VITD3) 2,000 UNIT CAP/TAB GT SCH (10:00)
[2021-09-17] MEDS: ZINC SULFATE 220mg CAP or TAB GT SCH (10:00)
[2021-09-17] MEDS: PANTOPRAZOLE 40 MG/10 ML VIAL INJ IV SCH ×2 (10:00→21:45)
[2021-09-17 13:00] VITALS: BP 110/69
[2021-09-17 17:00] VITALS: BP 124/69
[2021-09-17] MEDS: Jevity 1.2 Cal/Fiber 1 Liter GT SCH (20:08)
[2021-09-17 21:34] VITALS: BP 127/72
[2021-09-18 04:57] VITALS: BP 125/82
[2021-09-18] MEDS ORDERED: diphenhdrAMINE HCL 12.5 MG/5 ML UD GT PRN (06:30)
[2021-09-18 08:43] VITALS: BP 97/58
[2021-09-18] MEDS: ZINC SULFATE 220mg CAP or TAB GT SCH (09:59)
[2021-09-18] MEDS: CHOLECALCIFEROL (VITD3) 2,000 UNIT CAP/TAB GT SCH (09:59)
[2021-09-18] MEDS: ASCORBIC ACID 1,000 MG TAB GT SCH (09:59)
[2021-09-18] MEDS: ENOXAPARIN SOD 40 MG/0.4 ML SYRINGE SC SCH (10:00)
[2021-09-18] MEDS: PANTOPRAZOLE 40 MG/10 ML VIAL INJ IV SCH ×2 (10:00→21:43)
[2021-09-18 12:36] VITALS: BP 113/69
[2021-09-18 16:00] VITALS: BP 102/63
[2021-09-18 22:00] VITALS: BP 111/63
[2021-09-19 05:00] VITALS: BP 102/62
[2021-09-19 09:00] VITALS: BP 127/85
[2021-09-19] MEDS: CHOLECALCIFEROL (VITD3) 2,000 UNIT CAP/TAB GT SCH (11:13)
[2021-09-19] MEDS: PANTOPRAZOLE 40 MG/10 ML VIAL INJ IV SCH ×2 (11:13→21:40)
[2021-09-19] MEDS: ZINC SULFATE 220mg CAP or TAB GT SCH (11:13)
[2021-09-19] MEDS: ASCORBIC ACID 1,000 MG TAB GT SCH (11:13)
[2021-09-19] MEDS: ENOXAPARIN SOD 40 MG/0.4 ML SYRINGE SC SCH (11:14)
[2021-09-19 13:00] VITALS: BP 115/75
[2021-09-19 17:00] VITALS: BP 120/71
[2021-09-19 22:26] VITALS: BP 115/74
[2021-09-20 05:07] VITALS: BP 115/75
[2021-09-20] MEDS: ASCORBIC ACID 1,000 MG TAB GT SCH (08:43)
[2021-09-20] MEDS: ZINC SULFATE 220mg CAP or TAB GT SCH (08:43)
[2021-09-20] MEDS: CHOLECALCIFEROL (VITD3) 2,000 UNIT CAP/TAB GT SCH (08:43)
[2021-09-20] MEDS: PANTOPRAZOLE 40 MG/10 ML VIAL INJ IV SCH ×2 (08:44→22:01)
[2021-09-20] MEDS: ENOXAPARIN SOD 40 MG/0.4 ML SYRINGE SC SCH (08:44)
[2021-09-20 09:00] VITALS: BP 111/68
[2021-09-20 13:00] VITALS: BP 123/53
[2021-09-20 17:00] VITALS: BP 126/73
[2021-09-20] MEDS: Jevity 1.2 Cal/Fiber 1 Liter GT SCH (20:00)
[2021-09-20 22:00] VITALS: BP 138/75
[2021-09-21 05:00] VITALS: BP 131/78
[2021-09-21 07:40] VITALS: BP 126/79
[2021-09-21] MEDS: CHOLECALCIFEROL (VITD3) 2,000 UNIT CAP/TAB GT SCH (09:41)
[2021-09-21] MEDS: ENOXAPARIN SOD 40 MG/0.4 ML SYRINGE SC SCH (09:41)
[2021-09-21] MEDS: ZINC SULFATE 220mg CAP or TAB GT SCH (09:41)
[2021-09-21] MEDS: PANTOPRAZOLE 40 MG/10 ML VIAL INJ IV SCH ×2 (09:41→21:01)
[2021-09-21] MEDS: ASCORBIC ACID 1,000 MG TAB GT SCH (09:41)
[2021-09-21 13:00] VITALS: BP 141/87
[2021-09-21 18:08] VITALS: BP 129/74
[2021-09-21 22:00] VITALS: BP 125/67
[2021-09-22 05:00] VITALS: BP 105/63
[2021-09-22 09:00] VITALS: BP 111/55
[2021-09-22] MEDS: ASCORBIC ACID 1,000 MG TAB GT SCH (09:03)
[2021-09-22] MEDS: ZINC SULFATE 220mg CAP or TAB GT SCH (09:03)
[2021-09-22] MEDS: CHOLECALCIFEROL (VITD3) 2,000 UNIT CAP/TAB GT SCH (09:04)
[2021-09-22] MEDS: ENOXAPARIN SOD 40 MG/0.4 ML SYRINGE SC SCH (09:04)
[2021-09-22] MEDS: PANTOPRAZOLE 40 MG/10 ML VIAL INJ IV SCH ×2 (09:04→21:35)
[2021-09-22 13:00] VITALS: BP 131/76
[2021-09-22 17:00] VITALS: BP 125/83
[2021-09-22 19:43] VITALS: BP 138/70
[2021-09-22 22:00] VITALS: BP 138/70
[2021-09-23 05:00] VITALS: BP 125/78
[2021-09-23 07:03] LABS: Basophils # (auto) 0.1 10 ^3/uL (0-0.2); Basophils % (auto) 1.3 % (0.0-2.0); Eosinophils # (auto) 0.4 10 ^3/uL (0-0.8); Eosinophils % (auto) 5.1 % (0.0-7.0); Hematocrit 34.4 % (36.0-46.0); Hemoglobin 11.2 g/dL (12.2-16.2); Lymphocytes # (auto) 1.5 10 ^3/uL (0.4-5.4); Lymphocytes % (auto) 18.1 % (10.0-50.0); Mean Corpuscular Hemoglobin 29.3 pg (28.0-32.0); Mean Corpuscular Hgb Conc. 32.5 g/dL (32.0-36.0); Mean Corpuscular Volume 90.2 fL (80.0-100.0); Monocytes # (auto) 0.6 10 ^3/uL (0-1.3); Monocytes % (auto) 7.9 % (0.0-12.0); Neutrophils # (auto) 5.5 10 ^3/uL (1.6-8.6); Neutrophils % (auto) 67.6 % (37.0-80.0); Nucleated Red Blood Cells % 0.1 %; Red Blood Cells 3.82 10^6/uL (4.0-5.20); Red Cell Distribution Width 15.5 % (11.8-14.3); White Blood Cell 8.1 10^3/uL (4.4-10.8)
[2021-09-23 07:25] LABS: Potassium 4.1 mmol/L (3.5-5.1)
[2021-09-23 08:00] LABS: BUN/Creatinine Ratio 69.6; Calcium 9.7 mg/dL (8.5-10.1)
[2021-09-23 09:00] VITALS: BP 117/80
[2021-09-23] MEDS: ASCORBIC ACID 1,000 MG TAB GT SCH (09:07)
[2021-09-23] MEDS: PANTOPRAZOLE 40 MG/10 ML VIAL INJ IV SCH ×2 (09:07→21:51)
[2021-09-23] MEDS: ZINC SULFATE 220mg CAP or TAB GT SCH (09:07)
[2021-09-23] MEDS: CHOLECALCIFEROL (VITD3) 2,000 UNIT CAP/TAB GT SCH (09:07)
[2021-09-23] MEDS: ENOXAPARIN SOD 40 MG/0.4 ML SYRINGE SC SCH (09:08)
[2021-09-23 13:00] VITALS: BP 129/78
[2021-09-23] MEDS ORDERED: LACTULOSE 20Gm/30ML SOLN PO ONE (13:00)
[2021-09-23 17:02] VITALS: BP_SYST 113; BP_SYST 142; BP_DIAS 76; BP_DIAS 82
[2021-09-23] MEDS: Ensure HIGH Protein Chocolate 8oz Bottle PO SCH (19:31)
[2021-09-23 19:50] VITALS: BP 144/87
[2021-09-23 22:00] VITALS: BP 144/87
[2021-09-24 05:00] VITALS: BP 127/83
[2021-09-24] MEDS: Ensure HIGH Protein Chocolate 8oz Bottle PO SCH ×3 (08:00→18:00)
[2021-09-24 09:00] VITALS: BP 127/76
[2021-09-24] MEDS ORDERED: LACTULOSE 20Gm/30ML SOLN PO PRN (09:00)
[2021-09-24] MEDS: PANTOPRAZOLE 40 MG/10 ML VIAL INJ IV SCH ×2 (09:57→21:19)
[2021-09-24] MEDS: ENOXAPARIN SOD 40 MG/0.4 ML SYRINGE SC SCH (09:57)
[2021-09-24 17:00] VITALS: BP 136/78
[2021-09-24 22:00] VITALS: BP 111/87
[2021-09-25 04:42] VITALS: BP 117/70
[2021-09-25] MEDS: Ensure HIGH Protein Chocolate 8oz Bottle PO SCH (08:00)
[2021-09-25 09:00] VITALS: BP 121/69
[2021-09-25] MEDS: PANTOPRAZOLE 40 MG/10 ML VIAL INJ IV SCH ×2 (09:32→21:21)
[2021-09-25] MEDS: ENOXAPARIN SOD 40 MG/0.4 ML SYRINGE SC SCH (09:32)
[2021-09-25 13:00] VITALS: BP 132/75
[2021-09-25 17:00] VITALS: BP 119/81
[2021-09-26 05:00] VITALS: BP 102/66
[2021-09-26 09:00] VITALS: BP 108/55
[2021-09-26] MEDS: ENOXAPARIN SOD 40 MG/0.4 ML SYRINGE SC SCH (10:00)
[2021-09-26] MEDS: PANTOPRAZOLE 40 MG/10 ML VIAL INJ IV SCH (10:00)
[2021-09-26] MEDS: Ensure HIGH Protein Chocolate 8oz Bottle PO SCH (12:00)
[2021-09-26 13:00] VITALS: BP 102/48
[2021-09-26 15:24] VITALS: BP 118/74
[2021-09-26 17:08] VITALS: BP 118/71
== END 2021-09-26 19:30 | DRG 4 ==
LOC: ER 12:27 → EDBD 12:27 → EAST 23:45 → TELE-EAST 08-15 02:15 → TELE-E-ADS 08-18 19:00 → ICU WEST 08-19 10:35 → TELE-WESTW 09-08 22:17 → TELE-EAST 09-22 15:36 → TELE-WESTW 09-24 05:28
PROVIDERS: ADMIT Nurse Practitioner Family; ATTEND Internal Medicine Geriatric Medicine
PROC: XW033E5 Introduction of Remdesivir Anti-infective into Peripheral Vein, Percutaneous Approach, New Technology Group 5 (ICD-10-PCS; 2021-08-15)
PROC: 5A0935A Assistance with Respiratory Ventilation, Less than 24 Consecutive Hours, High Flow/Velocity Cannula (ICD-10-PCS; 2021-08-15)
PROC: 5A0935A Assistance with Respiratory Ventilation, Less than 24 Consecutive Hours, High Flow/Velocity Cannula (ICD-10-PCS; 2021-08-16)
PROC: 5A09357 Assistance with Respiratory Ventilation, Less than 24 Consecutive Hours, Continuous Positive Airway Pressure (ICD-10-PCS; principal; 2021-08-18)
PROC: 0BH17EZ Insertion of Endotracheal Airway into Trachea, Via Natural or Artificial Opening (ICD-10-PCS; 2021-08-19)
PROC: 5A1955Z Respiratory Ventilation, Greater than 96 Consecutive Hours (ICD-10-PCS; 2021-08-19)
PROC: 05HY33Z Insertion of Infusion Device into Upper Vein, Percutaneous Approach (ICD-10-PCS; 2021-08-19)
PROC: 0B110F4 Bypass Trachea to Cutaneous with Tracheostomy Device, Open Approach (ICD-10-PCS; 2021-09-03)
PROC: 0DH63UZ Insertion of Feeding Device into Stomach, Percutaneous Approach (ICD-10-PCS; 2021-09-03)
PROC: 30233K1 Transfusion of Nonautologous Frozen Plasma into Peripheral Vein, Percutaneous Approach (ICD-10-PCS; 2021-09-05)
DX: A41.89 Other specified sepsis (principal); U07.1 COVID-19; J12.82 Pneumonia due to coronavirus disease 2019; J96.01 Acute respiratory failure with hypoxia; E87.1 Hypo-osmolality and hyponatremia; Z99.11 Dependence on respirator [ventilator] status; D72.819 Decreased white blood cell count, unspecified; E66.01 Morbid (severe) obesity due to excess calories; E88.09 Other disorders of plasma-protein metabolism, not elsewhere classified; M19.90 Unspecified osteoarthritis, unspecified site; R53.81 Other malaise; K29.80 Duodenitis without bleeding; K29.70 Gastritis, unspecified, without bleeding; E87.6 Hypokalemia; E87.5 Hyperkalemia; E87.70 Fluid overload, unspecified; Z68.36 Body mass index [BMI] 36.0-36.9, adult
CPT/HCPCS: 36415; 36600; 71045; 71275; 80048; 80053; 80202; 81001; 82728; 82805; 82962; 83605; 83615; 83735; 83880; 84484; 85007; 85025; 85027; 85379; 85610; 85730; 86141; 86850; 86900; 86901; 87040; 87086; 87088; 87186; 87426; 92610; 93005; 93970; 94002; 94003; 94640; 94660; 96365; 96375; 97110; 97116; 97163; 97530; A4605; C9113; G0378; J0330; J1100; J2185; J2250; J2405; J2704; J3490; J7060